=== PATIENT | female | born 1985 | race Two or more races ===

== ENCOUNTER → 2016-12-15 | Emergency (ER) | payer MEDICAID ==
[~2016-12-15] VITALS: Ht 157.5 cm; Wt 72.6 kg
[~2016-12-15] MED LIST: ADVAIR 250-501 EACH INH; ALBUTEROL SULF8.5 GM INH; AZITHROMYCIN250 MG ORAL; CHLORPHENIRAMINE4 M1 PO; IBUPROFEN600 MG ORAL; PEPCID20 MG ORAL; PREDNISONE10 MG ORAL; PREDNISONE20 MG ORAL; PROMETH-CODEIN 65 ML PO; PROMETHAZINE-C118 M1 ORAL; ROBITUSSIN AC5 ML ORAL; TYLENOL325 MG ORAL
--- NOTE | 2016-12-15 12:22 | Emergency Room Report ---
History of Present Illness General Chief Complaint: Flu Like Symptoms Source: Patient Present Illness HPI Mother of family with URI symptoms. Also h/o asthma. Son with URI and fevers started Wednesday. Other children same. Phlegm is clear. No wheezes. No chest pain. Some sore throat. Muscle aches and some headache. Nose congestion. No NVD. Not . No chest pain. Had flu shot. Requests albuterol inhaler. Allergies: Uncoded Allergies: Claritine (Allergy, Unknown, 03/29/14) Patient History Social History: Denies: smoking Social History Narrative with children Last Menstrual Period: 4 days ago Reviewed Nursing Documentation: PMH: Agreed, PSxH: Agreed Nursing Documentation-PMH Past Medical History: No History, Except For Hx Asthma: Yes Review of Systems All Other Systems: negative except mentioned in HPI Physical Exam Vital Signs Date Time Temp Pulse Resp B/P Pulse Ox O2 Delivery O2 Flow Rate FiO2 12/15/16 11:31 101.8 125 20 108/72 99 Room Air Sp02 EP Interpretation: reviewed, normal General Appearance: well appearing, no apparent distress, GCS 15, non-toxic Head: normocephalic, atraumatic Eyes: bilateral eye PERRL, bilateral eye normal inspection ENT: hearing grossly normal, normal voice, TMs + canals normal, moist mucus membranes, pharyngeal erythema Neck: full range of motion, supple, no meningismus Respiratory: chest non-tender, lungs clear, normal breath sounds, no respiratory distress, speaking full sentences Cardiovascular #1: regular rate, rhythm Cardiovascular #2: 2+ radial (R) Gastrointestinal: normal bowel sounds, non tender, soft Musculoskeletal: normal inspection, digits/nails normal, gait/station normal, normal range of motion Neurologic: alert, normal gait, grossly normal Psychiatric: mood/affect normal Skin: no rash Medical Decision Making Diagnostic Impression: Primary Impression: URI, acute ER Course Patient with URI as with rest of family. No evidence of bacterial source. She received a flu vaccination and this makes that diagnosis is likely. Her lungs are clear and therefore bronchospasms not significant although she is requesting an inhaler. She is tolerating by mouth fluids. She'll be treated for her fever here. Patient stable for outpatient observation and treatment. Last Vital Signs Date Time Temp Pulse Resp B/P Pulse Ox O2 Delivery O2 Flow Rate FiO2 12/15/16 13:40 100.0 104 20 114/74 100 Room Air 98 Status: improved Disposition: HOME, SELF-CARE Condition: Improved Scripts Acetaminophen (Tylenol) 325 Mg Tablet 650 MG ORAL Q6H Y for Prn Pain/Headache/Temp > 101, #30 TAB 0 Refills Prov: Karson Prajapati M.D. 12/15/16 Chlorpheniramine Maleate (Chlorpheniramine Maleate) 4 Mg Tablet 4 MG PO Q6HR, #14 TAB Prov: Karson Prajapati M.D. 12/15/16 Albuterol Sulfate* (ALBUTEROL SULFATE MDI*) 8.5 Gm Hfa.aer.ad 2 PUFF INH Q6H, #1 INH 0 Refills Prov: Karson Prajapati M.D. 12/15/16 Famotidine (PEPCID) 20 Mg Tablet 20 MG ORAL DAILY, #12 TAB 0 Refills Prov: Karson Prajapati M.D. 12/15/16 Karson Prajapati M.D. Dec 15, 2016 12:22
[2016-12-15 12:23] VITALS: BP 108/72
[2016-12-15 13:20] VITALS: BP 114/74
[2016-12-15 13:40] VITALS: BP 114/74
== END | disposition home or self-care (01) ==
LOC: EMR 12:30
DX: J06.9 Acute upper respiratory infection, unspecified (principal); J45.909 Unspecified asthma, uncomplicated; Z88.8 Allergy status to other drugs, medicaments and biological substances
CPT/HCPCS: 99284

== ENCOUNTER 2016-12-20 07:55 | Emergency (ER) | payer MEDICAID ==
[~2016-12-20] VITALS: Ht 157.5 cm; Wt 73.5 kg
[~2016-12-20 07:55] MED LIST changes: -AZITHROMYCIN250 MG ORAL
[2016-12-20] MEDS ORDERED: Ketorolac 30mg Inj IV ONE (08:15)
[2016-12-20] MEDS ORDERED: Solu-MEDROL 125mg Inj IVP ONE (08:15)
[2016-12-20] MEDS ORDERED: Albuterol ud Inhalation HHN ONE (08:15)
[2016-12-20] MEDS ORDERED: Ipratropium 0.02% Inh Soln 2.5ml UD HHN ONE (08:15)
[2016-12-20 08:42] LABS: APPEARANCE,URINE CLEAR; KETONES,URINE 1+ (NEGATIVE); LEUKOCYTE ESTERASE ,URINE 1+ (NEGATIVE); NITRITE,URINE NEGATIVE (NEGATIVE); PH,URINE 6 (4.5-8.0); PROTEIN,URINE 2+ (NEGATIVE); UROBILINOGEN,URINE 1 MG/DL (0.0-1.0)
[2016-12-20 08:50] LABS: BASOPHILS % (AUTO) 0.6 % (0.0-2.0); EOSINOPHILS % (AUTO) 0.1 % (0.0-3.0); LYMPHOCYTES % (AUTO) 36.9 % (20.0-45.0); MEAN CORPUSCULAR HEMOGLOBIN 22.6 PG (27.0-31.0); MEAN CORPUSCULAR HGB CONC 31.3 G/DL (32.0-36.0); MEAN CORPUSCULAR VOLUME 72 FL (80-99); MEAN PLATELET VOLUME 6.5 FL (6.5-10.1); MONOCYTES % (AUTO) 8.4 % (1.0-10.0); PLATELET COUNT 333 K/UL (150-450); RED BLOOD COUNT 3.97 M/UL (4.20-5.40); RED CELL DISTRIBUTION WIDTH 16.4 % (11.6-14.8); WHITE BLOOD COUNT 3.6 K/UL (4.8-10.8)
[2016-12-20 08:54] LABS: BACTERIA,URINE FEW /HPF; ICTOTEST NEGATIVE; RBC,URINE 0-2 /HPF (0 - 2); SQUAMOUS EPITHELIAL CELL,UR MODERATE /LPF (NONE/OCC)
[2016-12-20 09:01] LABS: ALANINE AMINOTRANSFERASE 29 U/L (3-33); ALBUMIN/GLOBULIN RATIO 1.3 (1.0-2.7); ANION GAP 17 (5-15); ASPARTATE AMINO TRANSFERASE 38 U/L (5-40); CALCIUM 8.9 mg/dL (8.6-10.2); CARBON DIOXIDE 25 mEQ/L (20-30); CHLORIDE 95 mEQ/L (98-107); CREATININE 0.8 mg/dL (0.5-0.9); GLOMERULAR FILTRATION RATE > 60 mL/min (>60); HEMOLYSIS 0; POTASSIUM 3.5 mEQ/L (3.4-4.9); SODIUM 137 mEQ/L (135-145); TOTAL PROTEIN 7.3 g/dL (6.6-8.7)
--- NOTE | 2016-12-20 09:07 | Emergency Room Report ---
History of Present Illness General Chief Complaint: Upper Respiratory Illness Source: Patient Present Illness HPI The patient was seen here with a viral upper respiratory infection on her . She was treated symptomatically. In addition to that she has a history of asthma and was given albuterol. The patient states that the cough has persisted now with green phlegm. She also complains of headache and also chest pain when she is coughing. She has shortness of breath when she is walking. She's also continued to have fevers. The sore throat somewhat better. She denies any nausea vomiting or diarrhea. She is not at this time. The pain in her head is 9/10 and pounding heart rate the pain in her chest is slightly less than that. She's had asthma in the past. This does not feel like an asthma attack for her. She has been using albuterol. Allergies: Coded Allergies: LORATADINE (Verified Allergy, Unknown, 12/20/16) Uncoded Allergies: Claritine (Allergy, Unknown, 03/29/14) Patient History Past Medical History: see triage record Social History: Denies: smoking Social History Narrative with children Last Menstrual Period: 2 weeks ago Reviewed Nursing Documentation: PMH: Agreed, PSxH: Agreed Nursing Documentation-PMH Past Medical History: No History, Except For Hx Asthma: Yes Review of Systems All Other Systems: negative except mentioned in HPI Physical Exam Vital Signs Date Time Temp Pulse Resp B/P Pulse Ox O2 Delivery O2 Flow Rate FiO2 12/20/16 08:04 99.3 107 20 102/69 96 Room Air Sp02 EP Interpretation: reviewed, abnormal - slioghtly low as interpreted by me General Appearance: well appearing, no apparent distress, GCS 15, non-toxic Head: normocephalic Eyes: bilateral eye PERRL, bilateral eye normal inspection ENT: moist mucus membranes Neck: supple Respiratory: chest non-tender, crackles, rales, wheezing, expiration Cardiovascular #1: regular rate, rhythm Cardiovascular #2: 2+ radial (R) Gastrointestinal: normal inspection, normal bowel sounds, non tender, no mass, non-distended Musculoskeletal: back normal, gait/station normal, normal range of motion Neurologic: alert, oriented x3, grossly normal Psychiatric: mood/affect normal Skin: normal inspection, warm/dry Medical Decision Making Diagnostic Impression: Primary Impression: Pneumonia Qualified Codes: J18.9 - Pneumonia, unspecified organism Additional Impression: Asthma ER Course The patient presents with continued cough chest pain and fever. She is a history of asthma. Differential includes pneumonia, bronchitis, exacerbation of asthma, pleurisy amongst others. Evaluation will be undertaken with labs and chest x-ray. She'll be given IV hydration, some Medrol and a breathing treatment. Chest x-ray reveals left-sided infiltrate. She'll be given a dose of IV azithromycin. Also treated for pain. Improved with treatment with decreased pain and cough. O2 sat good. No respiratory distress. Patient stable for outpatient observation and treatment. Advised of dx and told to return if worsened. Chest X-Ray Diagnostic Results EP Interpretation: Yes Findings: no effusion, no pneumothorax, other - L infiltrate Number of Views: 1 Last Vital Signs Date Time Temp Pulse Resp B/P Pulse Ox O2 Delivery O2 Flow Rate FiO2 12/20/16 10:41 99 16 Room Air 12/20/16 10:40 97.6 101/72 100 Status: improved Disposition: HOME, SELF-CARE Condition: Improved Scripts Codeine/Promethazine Hcl* (PROMETHAZINE-CODEINE SYRUP*) 118 Ml Syrup 5 ML ORAL Q6H Y for For Cough, #60 ML 0 Refills Prov: Karson Prajapati M.D. 12/20/16 Prednisone* (PREDNISONE*) 10 Mg Tablet 10 MG ORAL DAILY, #22 TAB 0 Refills 4 po QD X 2, 3 po QD X 2, 2 po QD X 2, 1 po QD X 4 Prov: Karson Prajapati M.D. 12/20/16 Azithromycin* (ZITHROMAX*) 250 Mg Tablet 500 MG ORAL ONCE for 6 Days, #6 TAB 0 Refills Prov: Karson Prajapati M.D. 12/20/16 Referrals: NOT CHOSEN ANGELA/,REFERRING (PCP) Karson Prajapati M.D. Dec 20, 2016 09:07
[2016-12-20] MEDS ORDERED: Azithromycin Inj IV ONE (09:14)
[2016-12-20] MEDS ORDERED: Azithromycin 500 MG in D5W 275 ML IVPB ONE (09:15)
[2016-12-20 10:22] VITALS: BP 97/60
[2016-12-20] MEDS ORDERED: PROMETHAZINE-C118 M1 ORAL (10:30)
[2016-12-20] MEDS ORDERED: AZITHROMYCIN250 MG ORAL (10:30)
[2016-12-20] MEDS ORDERED: PREDNISONE10 MG ORAL (10:30)
[2016-12-20 10:40] VITALS: BP 101/72
--- NOTE | 2016-12-21 08:39 | Diagnostic Imaging Report ---
Indication: Dyspnea Comparison: None 2 views of the chest obtained. There is a left basilar infiltrate suspicious for pneumonia. Lung volumes are low. Heart size is accentuated. Bones are unremarkable. Impression: Left basilar pneumonia
== END 2016-12-20 10:42 | disposition home or self-care (01) ==
LOC: EMR 08:09
DX: J18.9 Pneumonia, unspecified organism (principal); J45.909 Unspecified asthma, uncomplicated
CPT/HCPCS: 36415; 71020; 80053; 81003; 81025; 85025; 96360; 96361; 96374; 96375; 99284; J0456; J1885; J2930

== ENCOUNTER 2017-08-24 18:39 | Emergency (ER) | payer MEDICAID ==
[~2017-08-24] VITALS: Ht 157.5 cm; Wt 72.6 kg
[~2017-08-24 18:39] MED LIST changes: +AZITHROMYCIN250 MG ORAL
[2017-08-24] MEDS ORDERED: DULERA 200 MCG/13 GM IH (18:48)
[2017-08-24] MEDS ORDERED: ADVAIR 500-501 EACH INH (18:48)
[2017-08-24] MEDS ORDERED: Promethazine/Codeine 5ml UD ORAL ONE (19:00)
[2017-08-24] MEDS ORDERED: Ipratropium 0.02% Inh Soln 2.5ml UD HHN ONE (19:00)
[2017-08-24] MEDS ORDERED: Albuterol ud Inhalation HHN ONE (19:00)
--- NOTE | 2017-08-24 19:10 | Emergency Room Report ---
History of Present Illness General Chief Complaint: Upper Respiratory Illness Source: Patient Present Illness HPI 31-year-old female presents ED for evaluation. States the last 3 days she's been having cough, wheezing, headache fever. States she was febrile yesterday. Afebrile today in triage. States she also has a headache, 8/10, throbbing. She has cough with productive green sputum. Denies sick contacts or recent travel. Denies smoking. History of asthma. No other aggravating relieving factors. Denies any other associated symptoms Allergies: Coded Allergies: LORATADINE (Verified Allergy, Unknown, 12/20/16) Patient History Past Medical History: asthma Past Surgical History: none Pertinent Family History: none Social History: Denies: smoking, alcohol use, drug use Last Menstrual Period: Current Now: No Immunizations: UTD Reviewed Nursing Documentation: PMH: Agreed, PSxH: Agreed Nursing Documentation-PMH Hx Asthma: Yes Review of Systems All Other Systems: negative except mentioned in HPI Physical Exam Vital Signs Date Time Temp Pulse Resp B/P (MAP) Pulse Ox O2 Delivery O2 Flow Rate FiO2 08/24/17 18:43 98.4 82 20 123/73 100 Room Air Sp02 EP Interpretation: reviewed, normal General Appearance: no apparent distress, alert, GCS 15, non-toxic Head: normocephalic, atraumatic Eyes: bilateral eye normal inspection, bilateral eye PERRL ENT: hearing grossly normal, normal pharynx, no angioedema, normal voice, other - bilateral TM cloudy Neck: full range of motion, supple/symm/no masses Respiratory: crackles, wheezing Cardiovascular #1: regular rate, rhythm, no edema Gastrointestinal: normal bowel sounds, non tender, soft, non-distended, no guarding, no rebound Rectal: deferred Genitourinary: no CVA tenderness Musculoskeletal: normal inspection Neurologic: alert, oriented x3, responsive, motor strength/tone normal, sensory intact, speech normal Psychiatric: normal inspection Skin: normal inspection Lymphatic: normal inspection Medical Decision Making Diagnostic Impression: Primary Impression: Atypical pneumonia ER Course Hospital Course 31-year-old female presents to ED complaining of cough, wheezing Differential diagnoses include: URI, bronchitis, asthma/COPD, pneumonia Clinical course Patient placed on stretcher. After initial history and physical I ordered prednisone, promethazine/codeine and nebulizer treatment. Upon reassessment patient states cough and symptoms have improved. presentation consistent with atypical pneumonia. I will prescribe antibiotics Diagnosis - atypical pneumonia Stable and discharged home with prescriptions for Rx promethazine/codeine, prednisone, amoxicilin, albuterol. Instructed to followup with PMD. Return to ED if symptoms recur or worsen Last Vital Signs Date Time Temp Pulse Resp B/P (MAP) Pulse Ox O2 Delivery O2 Flow Rate FiO2 08/24/17 18:43 98.4 82 20 123/73 100 Room Air Status: improved Disposition: HOME, SELF-CARE Condition: Stable Scripts Albuterol Sulfate* (ALBUTEROL SULFATE MDI*) 8.5 Gm Hfa.aer.ad 2 PUFF INH Q6H, #1 EA 0 Refills Prov: TASHA MCKINNEY M.D. 08/24/17 Prednisone* (PREDNISONE*) 20 Mg Tablet 40 MG ORAL DAILY, #10 TAB Prov: TASHA MCKINNEY M.D. 08/24/17 Codeine/Promethazine Hcl* (PROMETHAZINE-CODEINE SYRUP*) 118 Ml Syrup 5 ML ORAL Q6H Y for For Cough, #118 ML 0 Refills Prov: TASHA MCKINNEY M.D. 08/24/17 Amoxicillin* (AMOXIL*) 500 Mg Capsule 500 MG ORAL THREE TIMES A DAY, #21 CAP Prov: TASHA MCKINNEY M.D. 08/24/17 TASHA MCKINNEY M.D. Aug 24, 2017 19:10
[2017-08-24 19:15] VITALS: BP 123/73
[2017-08-24] MEDS ORDERED: PROMETHAZINE-C118 M1 ORAL (19:36)
[2017-08-24] MEDS ORDERED: PREDNISONE20 MG ORAL (19:36)
[2017-08-24] MEDS ORDERED: AMOXICILLIN500 MG ORAL (19:36)
[2017-08-24] MEDS ORDERED: ALBUTEROL SULF8.5 GM INH (19:36)
[2017-08-24 19:45] VITALS: BP 123/73
== END 2017-08-24 19:45 | disposition home or self-care (01) ==
LOC: EMR 19:09
DX: J18.9 Pneumonia, unspecified organism (principal); J45.909 Unspecified asthma, uncomplicated
CPT/HCPCS: 94640; 94664; 99284

== ENCOUNTER 2017-09-24 08:15 | Emergency (ER) | payer MEDICAID ==
[~2017-09-24] VITALS: Ht 152.4 cm; Wt 68.0 kg
[~2017-09-24 08:15] MED LIST changes: +ADVAIR 500-501 EACH INH; +AMOXICILLIN500 MG ORAL; +DULERA 200 MCG/13 GM IH
[2017-09-24 08:28] VITALS: BP 145/90
--- NOTE | 2017-09-24 08:30 | Emergency Room Report ---
History of Present Illness General Chief Complaint: Toothache Source: Patient Present Illness HPI Patient presents with complaints of left lower dental pain reports the pain started yesterday Denies any fevers or chills she feels of the pain is radiating downward to the lower chin She also complained of headache Denies any visual changes denies any neck pain or photophobia Denies any vomiting or diarrhea denies any trauma Allergies: Coded Allergies: LORATADINE (Verified Allergy, Unknown, 12/20/16) Patient History Past Medical History: see triage record Pertinent Family History: none Last Menstrual Period: 09/22/17 Reviewed Nursing Documentation: PMH: Agreed, PSxH: Agreed Nursing Documentation-PMH Past Medical History: No History, Except For Hx Asthma: Yes Review of Systems All Other Systems: negative except mentioned in HPI Physical Exam Vital Signs Date Time Temp Pulse Resp B/P (MAP) Pulse Ox O2 Delivery O2 Flow Rate FiO2 09/24/17 08:18 98.1 88 18 145/90 99 Room Air Sp02 EP Interpretation: reviewed, normal General Appearance: well appearing, no apparent distress Head: normocephalic, atraumatic Eyes: bilateral eye PERRL, bilateral eye EOMI ENT: hearing grossly normal, other - Left lower dental region just posterior to the canine, patient has evidence of dental decay, no obvious gingival erythema or abscess no trismus Neck: full range of motion, supple Respiratory: lungs clear Neurologic: alert, oriented x3 Skin: normal color, no rash Medical Decision Making Diagnostic Impression: Primary Impression: Toothache Additional Impression: Dental decay ER Course Patient's discomfort appears to be from a dental source no obvious abscess or fluctuance Patient does require close dental followup She was provided with pain medication I did not feel that antibiotics are appropriate given the findings she is stable for close followup Last Vital Signs Date Time Temp Pulse Resp B/P (MAP) Pulse Ox O2 Delivery O2 Flow Rate FiO2 09/24/17 08:18 98.1 88 18 145/90 99 Room Air Status: improved Disposition: HOME, SELF-CARE Condition: Stable Additional Instructions: Followup with dental professional next one to 2 days return to the ER with any changes HILARY OSUNA D.O. Sep 24, 2017 08:30
[2017-09-24] MEDS ORDERED: IBUPROFEN600 MG ORAL (08:31)
[2017-09-24 08:35] VITALS: BP 145/90
== END 2017-09-24 08:38 | disposition home or self-care (01) ==
LOC: EMR 08:27
DX: K08.89 Other specified disorders of teeth and supporting structures (principal); K02.9 Dental caries, unspecified; J45.909 Unspecified asthma, uncomplicated
CPT/HCPCS: 99282

== ENCOUNTER 2017-10-10 19:42 | Emergency (ER) | payer MEDICAID ==
[~2017-10-10] VITALS: Ht 157.5 cm; Wt 74.8 kg
[2017-10-10] MEDS ORDERED: TESSALON PERLE100 MG ORAL (20:55)
[2017-10-10] MEDS ORDERED: ZITHROMAX TRI-500 MG ORAL (21:44)
[2017-10-10] MEDS ORDERED: ALBUTEROL SULF8.5 GM INH (21:44)
--- NOTE | 2017-10-10 21:44 | Emergency Room Report ---
History of Present Illness General Chief Complaint: Flu Like Symptoms Source: Patient, Medical Record Present Illness HPI 31-year-old female with pmhx asthma p/w cough for 4 days. Pt states cough is productive, with clear non bloody sputum. +fever . Also complains of chest pain only when she coughs. Denies runny nose or myalgias. No sick contacts or recent travel. Patient does not smoke. Allergies: Coded Allergies: LORATADINE (Verified Allergy, Unknown, 12/20/16) Patient History Past Medical History: see triage record Past Surgical History: none Pertinent Family History: none Last Menstrual Period: 09/29/17 Now: No : 5 Para: 5 Reviewed Nursing Documentation: PMH: Agreed, PSxH: Agreed Nursing Documentation-PMH Hx Asthma: Yes Review of Systems All Other Systems: negative except mentioned in HPI Physical Exam Vital Signs Date Time Temp Pulse Resp B/P (MAP) Pulse Ox O2 Delivery O2 Flow Rate FiO2 10/10/17 19:55 99.3 116 18 129/57 92 Room Air Sp02 EP Interpretation: reviewed, normal General Appearance: normal inspection, well appearing, no apparent distress, alert, GCS 15, non-toxic, other - speaking in complete sentences, nontoxic Head: normocephalic, atraumatic Eyes: bilateral eye normal inspection, bilateral eye PERRL, bilateral eye EOMI ENT: normal ENT inspection, normal pharynx, normal voice, moist mucus membranes Neck: normal inspection, full range of motion, supple Respiratory: lungs clear, normal breath sounds, no respiratory distress, no retraction, no wheezing, speaking full sentences, other - lungs, no wheezing no crackles, chest symmetrical Cardiovascular #1: normal inspection, regular rate, rhythm, normal capillary refill Cardiovascular #2: 2+ radial (R), 2+ radial (L) Gastrointestinal: normal inspection, non tender, soft, non-distended, no guarding Musculoskeletal: normal inspection, back normal, normal range of motion, non- tender Neurologic: normal inspection, alert, oriented x3, responsive, motor strength/ tone normal, sensory intact, normal gait, speech normal Psychiatric: normal inspection, judgement/insight normal, memory normal Skin: normal inspection, normal color, no rash, warm/dry, well hydrated, normal turgor Medical Decision Making Diagnostic Impression: Primary Impression: Upper respiratory infection Additional Impression: Atypical pneumonia ER Course 31-year-old female with cough for 4 days DDX: Viral URI vs. pneumonia Plan: CXR, antibiotics ER course: Patient remains nontoxic, not in resp distress. no wheezing CXR obtained -possible atypical pneumonia Disposition: Patient is to be discharged home with a prescription albuterol inhalder, Z-Radha Strict precautions discussed with patient on when to return to the emergency room including hemoptysis, high fevers, chills, SOB, chest pain which may indicate severe illness. Patient is to follow up with their primary care doctor within 5 days. Patient agrees with plan. Please note that this Emergency Department Report was dictated using [employer] representative technology software, occasionally this can lead to erroneous entry secondary to interpretation by the dictation equipment Chest X-ray CXR: Ordered: Yes 1 view Indication: Cough EP interpretation: Yes Interpretation: + Interstitial infiltrate Impression: Interstitial infiltrates Electronically signed by Greg Grady MD Last Vital Signs Date Time Temp Pulse Resp B/P (MAP) Pulse Ox O2 Delivery O2 Flow Rate FiO2 10/10/17 19:55 99.3 116 18 129/57 92 Room Air Disposition: HOME, SELF-CARE Condition: Improved Scripts Albuterol Sulfate* (ALBUTEROL SULFATE MDI*) 8.5 Gm Hfa.aer.ad 2 PUFF INH Q4H Y for cough/wheezing, #1 EA 0 Refills Prov: Greg Grady M.D. 10/10/17 Azithromycin (ZITHROMAX TRI-RADHA) 500 Mg Tablet 500 MG ORAL DAILY, #1 PACK 0 Refills Prov: Greg Grady M.D. 10/10/17 Benzonatate* (TESSALON PERLE*) 100 Mg Capsule 100 MG ORAL THREE TIMES A DAY for 7 Days, #21 PERLE 0 Refills Prov: Greg Grady M.D. 10/10/17 Patient Instructions: Upper Respiratory Infection, Adult, [id number] Greg Grady M.D. Oct 10, 2017 21:44
[2017-10-10 21:53] VITALS: BP 103/66
--- NOTE | 2017-10-11 12:52 | Diagnostic Imaging Report ---
Indication: Cough Comparison: 12/20/2016 A single view chest radiograph was obtained. Findings: Cardiomediastinal appearance is within normal limits for age. Pulmonary vascularity is appropriate. The diaphragmatic contour is smooth and costophrenic angles are sharp. No pleural effusions are identified. The bones are unremarkable. Impression: No acute findings
== END 2017-10-10 21:48 | disposition home or self-care (01) ==
LOC: EMR 20:05
DX: J06.9 Acute upper respiratory infection, unspecified (principal); J18.9 Pneumonia, unspecified organism; J45.909 Unspecified asthma, uncomplicated
CPT/HCPCS: 71010; 99284

== ENCOUNTER 2018-01-02 09:41 | Emergency (ER) | payer MEDICAID ==
[~2018-01-02] VITALS: Ht 154.9 cm; Wt 70.3 kg
[~2018-01-02 09:41] MED LIST changes: +TESSALON PERLE100 MG ORAL; +ZITHROMAX TRI-500 MG ORAL
[2018-01-02 10:04] VITALS: BP 115/75
[2018-01-02] MEDS ORDERED: Ipratropium 0.02% Inh Soln 2.5ml UD HHN ONE (10:15)
[2018-01-02] MEDS ORDERED: Solu-MEDROL 125mg Inj IVP ONE (10:15)
[2018-01-02] MEDS ORDERED: Albuterol ud Inhalation HHN ONE (10:15)
[2018-01-02 10:51] LABS: BASOPHILS % (AUTO) 1.5 % (0.0-2.0); EOSINOPHILS % (AUTO) 11.7 % (0.0-3.0); HEMATOCRIT 30.1 % (37.0-47.0); HEMOGLOBIN 8.9 G/DL (12.0-16.0); LYMPHOCYTES % (AUTO) 21.6 % (20.0-45.0); MEAN CORPUSCULAR VOLUME 69 FL (80-99); MONOCYTES % (AUTO) 6.1 % (1.0-10.0); NEUTROPHILS % (AUTO) 59.2 % (45.0-75.0); PLATELET COUNT 476 K/UL (150-450); RED CELL DISTRIBUTION WIDTH 17.4 % (11.6-14.8); WHITE BLOOD COUNT 8.3 K/UL (4.8-10.8)
[2018-01-02 10:58] LABS: ANION GAP 6 mmol/L (5-15); BLOOD UREA NITROGEN 10 mg/dL (7-18); CALCIUM 9.2 MG/DL (8.5-10.1); CARBON DIOXIDE 28 MMOL/L (21-32); CHLORIDE 102 MMOL/L (98-107); CREATININE 0.6 MG/DL (0.55-1.30); POTASSIUM 3.9 MMOL/L (3.5-5.1); SODIUM 136 MMOL/L (136-145)
[2018-01-02 11:09] LABS: ALANINE AMINOTRANSFERASE 36 U/L (12-78); ALKALINE PHOSPHATASE 83 U/L (46-116); ASPARTATE AMINO TRANSFERASE 21 U/L (15-37); BILIRUBIN,TOTAL 1.1 MG/DL (0.2-1.0)
[2018-01-02 11:10] LABS: APPEARANCE,URINE SLIGHTLY CLOUDY; BILIRUBIN, URINE NEGATIVE (NEGATIVE); COLOR,URINE PALE YELLOW; GLUCOSE, URINE (UA) NEGATIVE (NEGATIVE); KETONES,URINE NEGATIVE (NEGATIVE); LEUKOCYTE ESTERASE ,URINE 1+ (NEGATIVE); NITRITE,URINE NEGATIVE (NEGATIVE); PH,URINE 7 (4.5-8.0); PROTEIN,URINE NEGATIVE (NEGATIVE); UROBILINOGEN,URINE NORMAL MG/DL (0.0-1.0)
[2018-01-02 11:11] LABS: BILIRUBIN,DIRECT 0.2 MG/DL (0.0-0.3)
--- NOTE | 2018-01-02 11:28 | Diagnostic Imaging Report ---
Indication: Chest pain Technique: XRAY Chest 1v Comparison: 10/10/2017 Findings: The cardiomediastinal silhouette is within normal limits. There is no focal consolidation, pneumothorax or pleural effusion. Osseous structures demonstrate no acute abnormality. Impression: No acute cardiopulmonary disease.
[2018-01-02 11:42] VITALS: BP 118/79
--- NOTE | 2018-01-02 12:03 | Emergency Room Report ---
History of Present Illness General Chief Complaint: Asthma Source: Patient Present Illness HPI Patient presents with several days of cough and wheezing. No fevers. No color to phlegm. Chest pain is more pressure (rated 5/10 to RN, denied to me). No NVD. Has h/o asthma. Using inhaler, ran out, and it wasn't working anyway. She states this is her worst attack. No flu shot. Not sure is she took steroids in past (old recon has). H/O heavy menses. No orthostatic sy or headaches. states pallor in past. No melena. Not . No joint pain, rashes, change in bowels. Allergies: Coded Allergies: LORATADINE (Verified Allergy, Unknown, 12/20/16) Patient History Past Medical History: see triage record Social History: Denies: smoking Social History Narrative Last Menstrual Period: december Reviewed Nursing Documentation: PMH: Agreed, PSxH: Agreed Nursing Documentation-PMH Hx Asthma: Yes Review of Systems All Other Systems: negative except mentioned in HPI Physical Exam Vital Signs Date Time Temp Pulse Resp B/P (MAP) Pulse Ox O2 Delivery O2 Flow Rate FiO2 01/02/18 09:54 97.6 97 18 157/76 93 Room Air 97.5 01/02/18 10:08 21 Sp02 EP Interpretation: reviewed, abnormal - interpreted as low by me General Appearance: well appearing, no apparent distress, GCS 15 Head: normocephalic Eyes: bilateral eye PERRL, bilateral eye conjunctivae pale ENT: normal pharynx, moist mucus membranes Neck: supple Respiratory: wheezing, expiration, other - slight tachypnea Cardiovascular #1: regular rate, rhythm, no edema Cardiovascular #2: 2+ radial (R) Gastrointestinal: normal inspection, normal bowel sounds, non tender, no mass, non-distended Musculoskeletal: back normal, gait/station normal, normal range of motion, no calf tenderness Neurologic: alert, oriented x3, grossly normal Skin: warm/dry, pallor Medical Decision Making Diagnostic Impression: Primary Impression: Asthma Qualified Codes: J45.41 - Moderate persistent asthma with (acute) exacerbation Additional Impression: Anemia Qualified Codes: D50.0 - Iron deficiency anemia secondary to blood loss ( chronic) ER Course Patient presents with worst asthma attack she has ever had. Ddx: pneumonia, bronchitis, influenza, asthma, PE. History is inconsistent with PE. Evaluation with CXR, labs. Treatment with solumedrol and breathing treatments. Close observation as never this severe in past according to her. She is also quite pale. CXR no infiltrates. Labs with anemia and eosinophilia. Patient dramatically improved after treatment. Exercised in ED and no wheezing. O2 sat now 100%. Discussed findings and significance of steroid responsive asthma and anemia. Patient stable for outpatient observation and treatment Laboratory Tests Test 01/02/18 10:20 01/02/18 10:40 White Blood Count 8.3 K/UL (4.8-10.8) Red Blood Count 4.40 M/UL (4.20-5.40) Hemoglobin 8.9 G/DL (12.0-16.0) L Hematocrit 30.1 % (37.0-47.0) L Mean Corpuscular Volume 69 FL (80-99) L Mean Corpuscular Hemoglobin 20.2 PG (27.0-31.0) L Mean Corpuscular Hemoglobin Concent 29.5 G/DL (32.0-36.0) L Red Cell Distribution Width 17.4 % (11.6-14.8) H Platelet Count 476 K/UL (150-450) H Mean Platelet Volume 6.7 FL (6.5-10.1) Neutrophils (%) (Auto) 59.2 % (45.0-75.0) Lymphocytes (%) (Auto) 21.6 % (20.0-45.0) Monocytes (%) (Auto) 6.1 % (1.0-10.0) Eosinophils (%) (Auto) 11.7 % (0.0-3.0) H Basophils (%) (Auto) 1.5 % (0.0-2.0) Sodium Level 136 MMOL/L (136-145) Potassium Level 3.9 MMOL/L (3.5-5.1) Chloride Level 102 MMOL/L (98-107) Carbon Dioxide Level 28 MMOL/L (21-32) Anion Gap 6 mmol/L (5-15) Blood Urea Nitrogen 10 mg/dL (7-18) Creatinine 0.6 MG/DL (0.55-1.30) Estimate Glomerular Filtration Rate > 60 mL/min (>60) Glucose Level 87 MG/DL (74-106) Calcium Level 9.2 MG/DL (8.5-10.1) Magnesium Level 1.9 MG/DL (1.8-2.4) Total Bilirubin 1.1 MG/DL (0.2-1.0) H Direct Bilirubin 0.2 MG/DL (0.0-0.3) Aspartate Amino Transferase (AST) 21 U/L (15-37) Alanine Aminotransferase (ALT) 36 U/L (12-78) Alkaline Phosphatase 83 U/L (46-116) Total Protein 7.9 G/DL (6.4-8.2) Albumin 4.0 G/DL (3.4-5.0) Globulin 3.9 g/dL Albumin/Globulin Ratio 1.0 (1.0-2.7) Urine Color Pale yellow Urine Appearance Slightly cloudy Urine pH 7 (4.5-8.0) Urine Specific [place] 1.005 (1.005-1.035) Urine Protein Negative (NEGATIVE) Urine Glucose (UA) Negative (NEGATIVE) Urine Ketones Negative (NEGATIVE) Urine Occult Blood Negative (NEGATIVE) Urine Nitrite Negative (NEGATIVE) Urine Bilirubin Negative (NEGATIVE) Urine Urobilinogen Normal MG/DL (0.0-1.0) Urine Leukocyte Esterase 1+ (NEGATIVE) H Urine RBC 0-2 /HPF (0 - 2) Urine WBC 2-4 /HPF (0 - 2) Urine Squamous Epithelial Cells Many /LPF (NONE/OCC) H Urine Bacteria Few /HPF (NONE) Urine HCG, Qualitative Negative Chest X-Ray Diagnostic Results Chest X-Ray Diagnostic Results : Chest X-Ray Ordered: Yes # of Views/Limited/Complete: 1 View Indication: Shortness of Breath Interpretation: no consolidation, no effusion, no pneumothorax Impression: No acute disease Electronically Signed by: Electronically signed by Karson Prajapati MD Last Vital Signs Date Time Temp Pulse Resp B/P (MAP) Pulse Ox O2 Delivery O2 Flow Rate FiO2 01/02/18 12:11 97.5 79 22 118/79 100 Room Air 97.5 01/02/18 10:17 21 Status: improved Disposition: HOME, SELF-CARE Condition: Improved Scripts Multivitamin With Minerals (MULTIVITAMINS WITH MINERALS*) 1 Each Tablet 1 TAB ORAL DAILY, #30 TAB Prov: Karson Prajapati M.D. 01/02/18 Albuterol Sulfate* (ALBUTEROL SULFATE MDI*) 8.5 Gm Hfa.aer.ad 2 PUFF INH Q6H, #1 EA 1 Refill Prov: Karson Prajapati M.D. 01/02/18 Beclomethasone Dipropionate 40MCG Oral Inh (QVAR 40*) 7.3 Gm Aer.w.adap 2 PUFFS INH TWICE A DAY, #1 GM 0 Refills Prov: Karson Prajapati M.D. 01/02/18 Prednisone* (PREDNISONE*) 20 Mg Tablet 40 MG ORAL DAILY, #10 TAB Prov: Karson Prajapati M.D. 01/02/18 Referrals: NOT CHOSEN ANGELA/,REFERRING (PCP) Karson Prajapati M.D. Jan 02, 2018 12:03
[2018-01-02] MEDS ORDERED: PREDNISONE20 MG ORAL (12:06)
[2018-01-02] MEDS ORDERED: QVAR7.3 GM INH (12:06)
[2018-01-02] MEDS ORDERED: ALBUTEROL SULF8.5 GM INH (12:06)
[2018-01-02] MEDS ORDERED: MULTIVITAMINS1 EAC8 ORAL (12:06)
[2018-01-02 12:11] VITALS: BP 118/79
== END 2018-01-02 12:13 | disposition home or self-care (01) ==
LOC: EMR 10:05
DX: J45.41 Moderate persistent asthma with (acute) exacerbation (principal); D50.0 Iron deficiency anemia secondary to blood loss (chronic); Z88.8 Allergy status to other drugs, medicaments and biological substances; R07.9 Chest pain, unspecified
CPT/HCPCS: 36415; 71045; 80053; 81003; 81025; 82248; 83735; 85025; 94640; 94664; 96374; 96375; 99284; J2930

== ENCOUNTER 2018-03-03 22:03 | Emergency (ER) | payer MEDICAID ==
[~2018-03-03] VITALS: Ht 157.5 cm; Wt 77.1 kg
[~2018-03-03 22:03] MED LIST changes: +MULTIVITAMINS1 EAC8 ORAL; +QVAR7.3 GM INH
--- NOTE | 2018-03-03 22:28 | Emergency Room Report ---
History of Present Illness General Chief Complaint: Asthma Source: Patient Present Illness HPI Patient presents with complaints of asthma exacerbation She is here with her who complains of the same Patient did get a new mattress And thinks that this might be causing some of the pathology Denies any vomiting or diarrhea denies any fevers denies any chest pain Patient was using her inhaler without much improvement Allergies: Coded Allergies: LORATADINE (Verified Allergy, Unknown, 12/20/16) Patient History Past Medical History: see triage record Pertinent Family History: none Last Menstrual Period: 02/19/18 Now: No - hysterectomy 2012 Reviewed Nursing Documentation: PMH: Agreed; PSxH: Agreed Nursing Documentation-PMH Past Medical History: No History, Except For Hx Asthma: Yes Review of Systems All Other Systems: negative except mentioned in HPI Physical Exam Vital Signs Date Time Temp Pulse Resp B/P (MAP) Pulse Ox O2 Delivery O2 Flow Rate FiO2 03/03/18 22:09 98.3 66 16 120/63 95 Room Air 98.2 Sp02 EP Interpretation: reviewed, normal General Appearance: well appearing, no apparent distress Head: normocephalic, atraumatic Eyes: bilateral eye PERRL, bilateral eye EOMI ENT: hearing grossly normal, normal pharynx, TMs + canals normal, uvula midline Neck: full range of motion, supple, no meningismus, no bony tend Respiratory: no respiratory distress, no retraction, no accessory muscle use, wheezing - Bilaterally Cardiovascular #1: normal peripheral pulses, regular rate, rhythm, no edema, no gallop, no JVD, no murmur Gastrointestinal: normal bowel sounds, non tender, soft, no mass, no organomegaly, non-distended, no guarding, no hernia, no pulsatile mass, no rebound Musculoskeletal: normal inspection Neurologic: oriented x3, responsive, master dyer III-XII nml as tested, motor strength/ tone normal, sensory intact Psychiatric: mood/affect normal Skin: normal color, no rash, warm/dry, palpation normal Lymphatic: normal inspection, no adenopathy Medical Decision Making Diagnostic Impression: Primary Impression: Asthma attack ER Course Patient is a fairly complex patient with multiple differential to consideration including but not limited to cardiac cardiopulmonary and vascular emergencies Patient's clinical exam however is indicative of asthma exacerbation Patient is significantly better after initial intervention in the ER and at this time is stable for close outpatient follow-up Last Vital Signs Date Time Temp Pulse Resp B/P (MAP) Pulse Ox O2 Delivery O2 Flow Rate FiO2 03/03/18 22:09 98.3 66 16 120/63 95 Room Air 98.2 Status: improved Disposition: HOME, SELF-CARE Condition: Improved Scripts Prednisone (Prednisone) 20 Mg Tablet 20 MG PO BID, #10 TAB Prov: Sherie Garcia DO 03/03/18 Albuterol Sulfate* (ALBUTEROL SULFATE MDI*) 8.5 Gm Hfa.aer.ad 2 PUFF INH Q6H, #1 EA 0 Refills Prov: Sherie Garcia DO 03/03/18 Additional Instructions: Patient is provided with the discharge instructions notified to follow up with primary doctor in the next 2-3 days otherwise return to the er with any worsening symptoms. Please note that this report is being documented using [employer] technology. This can lead to erroneous entry secondary to incorrect interpretation by the dictating instrument. Sherie Garcia DO March 03, 2018 22:28
[2018-03-03] MEDS ORDERED: Albuterol ud Inhalation HHN ONE (22:30)
[2018-03-03] MEDS ORDERED: PREDNISONE20 M1 PO (23:07)
[2018-03-03] MEDS ORDERED: ALBUTEROL SULF8.5 GM INH (23:07)
[2018-03-03 23:24] VITALS: BP 120/63
== END 2018-03-03 23:25 | disposition home or self-care (01) ==
LOC: EMR 22:29
DX: J45.901 Unspecified asthma with (acute) exacerbation (principal)
CPT/HCPCS: 94640; 94664; 99284; J7512

== ENCOUNTER 2018-03-17 19:41 | Emergency (ER) | payer MEDICAID ==
[~2018-03-17] VITALS: Ht 157.5 cm; Wt 77.1 kg
[~2018-03-17 19:41] MED LIST changes: +PREDNISONE20 M1 PO
[2018-03-17] MEDS ORDERED: ADVAIR 100-501 EACH INH (19:47)
[2018-03-17] MEDS: Ipratropium 0.02% Inh Soln 2.5ml UD HHN SCH ×3 (20:08→20:43)
[2018-03-17] MEDS: Albuterol ud Inhalation HHN SCH ×3 (20:10→20:43)
[2018-03-17 21:17] VITALS: BP 121/70
[2018-03-17] MEDS ORDERED: ALBUTEROL2.5 MG/3 M HHN (21:22)
[2018-03-17] MEDS ORDERED: ALBUTEROL SULF8.5 GM INH (21:22)
[2018-03-17] MEDS ORDERED: PREDNISONE20 MG ORAL (21:22)
[2018-03-17] MEDS ORDERED: PROMETHAZINE-C118 M1 ORAL (21:22)
[2018-03-17 21:27] VITALS: BP 121/70
--- NOTE | 2018-03-17 21:31 | Emergency Room Report ---
History of Present Illness General Chief Complaint: Asthma Source: Patient Present Illness HPI 32-year-old female presents ED complaining of cough and wheezing 2 days. History of asthma. Cough is productive with yellowish phlegm. Afebrile. Denies chest pain. Denies sick contacts or recent travel. No other aggravating relieving factors. Denies any other associated symptoms Allergies: Coded Allergies: LORATADINE (Verified Allergy, Unknown, 03/17/18) Patient History Past Medical History: asthma Past Surgical History: none Pertinent Family History: none Social History: Denies: smoking, alcohol use, drug use Last Menstrual Period: unk Now: No Immunizations: UTD Reviewed Nursing Documentation: PMH: Agreed; PSxH: Agreed Nursing Documentation-PMH Past Medical History: No History, Except For Hx Asthma: Yes Review of Systems All Other Systems: negative except mentioned in HPI Physical Exam Vital Signs Date Time Temp Pulse Resp B/P (MAP) Pulse Ox O2 Delivery O2 Flow Rate FiO2 03/17/18 19:45 99.0 112 24 141/102 100 Room Air 99.0 Sp02 EP Interpretation: reviewed, normal General Appearance: no apparent distress, alert, GCS 15, non-toxic Head: normocephalic, atraumatic Eyes: bilateral eye normal inspection, bilateral eye PERRL ENT: hearing grossly normal, normal pharynx, no angioedema, normal voice Neck: full range of motion, supple/symm/no masses Respiratory: chest non-tender, lungs clear, speaking full sentences, wheezing Cardiovascular #1: regular rate, rhythm, no edema Cardiovascular #2: 2+ carotid (R), 2+ carotid (L), 2+ radial (R), 2+ radial (L) , 2+ dorsalis pedis (R), 2+ dorsalis pedis (L) Gastrointestinal: normal bowel sounds, non tender, soft, non-distended, no guarding, no rebound Rectal: deferred Genitourinary: normal inspection, no CVA tenderness Musculoskeletal: back normal, gait/station normal, normal range of motion, non- tender Neurologic: alert, oriented x3, responsive, motor strength/tone normal, sensory intact, speech normal Psychiatric: judgement/insight normal, memory normal, mood/affect normal, no suicidal/homicidal ideation Reflexes: 3+ bicep (R), 3+ bicep (L), 3+ tricep (R), 3+ tricep (L), 3+ knee (R) , 3+ knee (L) Skin: normal color, no rash, warm/dry, well hydrated Lymphatic: no adenopathy Medical Decision Making Diagnostic Impression: Primary Impression: Asthma attack Qualified Codes: J45.41 - Moderate persistent asthma with (acute) exacerbation ER Course Hospital Course 32-year-old female presents to ED complaining of cough, wheezing Differential diagnoses include: URI, bronchitis, asthma/COPD, pneumonia Clinical course Patient placed on stretcher. After initial history, physical exam reveals a female in no acute distress. Bilateral TM unremarkable. No pharyngeal erythema. No tonsillar exudates. No lymphadenopathy. Mild wheezing noted on exam, no signs of respiratory distress or retractions. Patient given Prednisone and albutero/atroventl treatment in ED with symptoms improved. Reassurance given Diagnosis - asthma attack Stable and discharged home with prescriptions for prednisone, albuterol, promethazine/codeine. Instructed to followup with PMD. Return to ED if symptoms recur or worsen Chest X-Ray Diagnostic Results Chest X-Ray Diagnostic Results : Chest X-Ray Ordered: Yes # of Views/Limited/Complete: 1 View Indication: Shortness of Breath EP Interpretation: Yes Interpretation: no consolidation, no effusion, no pneumothorax, no acute cardiopulmonary disease Impression: No acute disease Electronically Signed by: Electronically signed by Jayden Núñez MD Last Vital Signs Date Time Temp Pulse Resp B/P (MAP) Pulse Ox O2 Delivery O2 Flow Rate FiO2 03/17/18 21:17 99.4 120 18 121/70 96 Room Air 99.4 Status: improved Disposition: HOME, SELF-CARE Condition: Stable Scripts Codeine/Promethazine Hcl* (PROMETHAZINE-CODEINE SYRUP*) 118 Ml Syrup 5 ML ORAL Q6H PRN for For Cough, #118 ML 0 Refills Prov: Jayden Núñez MD 03/17/18 Prednisone* (PREDNISONE*) 20 Mg Tablet 40 MG ORAL DAILY, #10 TAB Prov: Jayden Núñez MD 03/17/18 Albuterol Sulfate* (ALBUTEROL SULFATE HHN*) 2.5 Mg/3 Ml Vial.neb 2.5 MG HHN Q4H PRN for Shortness of Breath, #25 VIAL Prov: Jayden Núñez MD 03/17/18 Albuterol Sulfate* (ALBUTEROL SULFATE MDI*) 8.5 Gm Hfa.aer.ad 2 PUFF INH Q6H, #1 EA 0 Refills Prov: Jayden Núñez MD 03/17/18 Referrals: NOT CHOSEN [facility]/,REFERRING (PCP) Patient Instructions: Asthma, Adult Jayden Núñez MD March 17, 2018 21:31
--- NOTE | 2018-03-18 10:03 | Diagnostic Imaging Report ---
Indication: Shortness of breath Technique: One view of the chest Comparison: 01/02/2018 Findings: Lungs and pleural spaces are clear. Heart size is normal . No significant change Impression: No acute process
== END 2018-03-17 21:27 | disposition home or self-care (01) ==
LOC: EMR 19:58
DX: J45.41 Moderate persistent asthma with (acute) exacerbation (principal)
CPT/HCPCS: 71045; 94640; 94664; 99284; J7512

== ENCOUNTER 2018-03-23 20:52 | Emergency (ER) | payer MEDICAID ==
[~2018-03-23] VITALS: Ht 154.9 cm; Wt 78.0 kg
[~2018-03-23 20:52] MED LIST changes: +ADVAIR 100-501 EACH INH; +ALBUTEROL2.5 MG/3 M HHN
--- NOTE | 2018-03-23 21:08 | Emergency Room Report ---
History of Present Illness General Chief Complaint: Dyspnea/Respdistress Source: Patient Present Illness HPI 32-year-old female with history of asthma, p/w SOB for 1 days. SOB occurs both at rest and on exertion. + non productive cough. Denies chest pain. Patient has been using albuterol inhaler every 4 hours. Also use her nebulizer at home without relief. Had a course of steroids that she finished last week. Pt states that this episode is similar to other episodes of asthma exacerbation. Denies fever, chills. Denies sick contacts or recent travel. Patient denies history of ICU admissions, intubations, or usage of BIPAP for asthma. Denies history of PE/DVT, no recent surgeries, prolonged immobilization, malignancy, or use of OCPs/HRT. Allergies: Coded Allergies: LORATADINE (Verified Allergy, Unknown, 03/17/18) POLLEN EXTRACTS (Verified Allergy, Unknown, 03/23/18) Patient History Past Medical History: see triage record Past Surgical History: none Pertinent Family History: none Last Menstrual Period: on period Reviewed Nursing Documentation: PMH: Agreed; PSxH: Agreed Nursing Documentation-PMH Hx Asthma: Yes Review of Systems All Other Systems: negative except mentioned in HPI Physical Exam Vital Signs Date Time Temp Pulse Resp B/P (MAP) Pulse Ox O2 Delivery O2 Flow Rate FiO2 03/23/18 20:55 98.2 109 18 148/96 98 Room Air 98.2 Sp02 EP Interpretation: reviewed, normal General Appearance: alert, GCS 15, non-toxic, moderate distress Head: normocephalic, atraumatic Eyes: bilateral eye normal inspection, bilateral eye PERRL, bilateral eye EOMI ENT: normal ENT inspection, normal pharynx, normal voice, moist mucus membranes Neck: normal inspection, full range of motion, supple Respiratory: respiratory distress, accessory muscle use, wheezing, expiration Cardiovascular #1: normal inspection, regular rate, rhythm, no edema, normal capillary refill Cardiovascular #2: 2+ radial (R), 2+ radial (L) Gastrointestinal: normal inspection, non tender, soft, non-distended, no guarding Musculoskeletal: normal inspection, back normal, normal range of motion, non- tender Neurologic: normal inspection, alert, oriented x3, responsive, motor strength/ tone normal, sensory intact, normal gait, speech normal Psychiatric: normal inspection, judgement/insight normal, memory normal Skin: normal inspection, normal color, no rash, warm/dry, well hydrated, normal turgor Medical Decision Making Diagnostic Impression: Primary Impression: Asthma ER Course 32-year-old female with history of asthma p/w SOB DDX: Asthma exacerbation, pneumonia, upper respiratory infection/viral syndrome PE is unlikely given other likely diagnoses which is more likely in this patients given clinical scenario and physical examination. Furthermore, there is no history of DVT/PE. PERC negative. No risk factors such as OCPs, prolonged immobilizations, recent surgeries, hypercoagulability. Plan: Combivent nebulizer treatment x 3, steroids, EKG, CXR If patient's condition minimally improves/worsens will require IV access and blood work. Possible IV medications such as magnesium sulfate, continuous albuterol ER Course: Patient has been treated with combivent x 3, steroids, antibiotics. given 3 more albuterol CXR reveals no acute infiltrate Patient's overall respiratory status has improved in ED. Patient states improvement of symptoms. Patient continues to speak in complete sentences and is not in respiratory distress. Repeat lung auscultation: good air entry with dec wheezing. Repeat VS reveals normal RR and SpO2. I offered admission tot he patient as she was here last week for the same thing , but states she feels well enough to go home and use her nebulzier Disposition: Patient will be discharged to home with course of steroids. Patient is instructed to use albuterol nebulizer every 2 hours Strict precautions are discussed with patient on when to emergently return to the ED including: persistent or worsening SOB, chest pain, fever, chills, which could indicate severe illness. Patient verbalized understanding. Patient is to follow up with her/his PMD within 5 days. Patient agrees with plan. Please note that this Emergency Department Report was dictated using [employer] inspector technology software, occasionally this can lead to erroneous entry secondary to interpretation by the dictation equipment. EKG Diagnostic Results EP Interpretation: Yes Rate: normal Rhythm: NSR ST Segments: No acute changes ASA given to patient: No Rhythm Strip EP Interpretation: Yes Rate: 70 Rhythm: NSR, no PVCs, no ectopy Chest X-ray CXR: Ordered: Yes 1 view Indication: SOB EP interpretation: Yes Interpretation: No consolidation, no effusion, no PTX, no acute cardiopulmonary disease Impression: No acute disease Electronically signed by Greg Grady MD Laboratory Tests Test 03/23/18 21:11 White Blood Count 10.9 K/UL (4.8-10.8) H Red Blood Count 4.37 M/UL (4.20-5.40) Hemoglobin 13.7 G/DL (12.0-16.0) Hematocrit 39.6 % (37.0-47.0) Mean Corpuscular Volume 91 FL (80-99) Mean Corpuscular Hemoglobin 31.3 PG (27.0-31.0) H Mean Corpuscular Hemoglobin Concent 34.5 G/DL (32.0-36.0) Red Cell Distribution Width 16.9 % (11.6-14.8) H Platelet Count 373 K/UL (150-450) Mean Platelet Volume 6.6 FL (6.5-10.1) Neutrophils (%) (Auto) 50.9 % (45.0-75.0) Lymphocytes (%) (Auto) 31.9 % (20.0-45.0) Monocytes (%) (Auto) 5.6 % (1.0-10.0) Eosinophils (%) (Auto) 10.1 % (0.0-3.0) H Basophils (%) (Auto) 1.5 % (0.0-2.0) Sodium Level 143 MMOL/L (136-145) Potassium Level 3.4 MMOL/L (3.5-5.1) L Chloride Level 104 MMOL/L (98-107) Carbon Dioxide Level 30 MMOL/L (21-32) Anion Gap 9 mmol/L (5-15) Blood Urea Nitrogen 16 mg/dL (7-18) Creatinine 0.9 MG/DL (0.55-1.30) Estimate Glomerular Filtration Rate > 60 mL/min (>60) Glucose Level 111 MG/DL (74-106) H Calcium Level 9.2 MG/DL (8.5-10.1) Total Bilirubin 0.4 MG/DL (0.2-1.0) Aspartate Amino Transferase (AST) 24 U/L (15-37) Alanine Aminotransferase (ALT) 53 U/L (12-78) Alkaline Phosphatase 70 U/L (46-116) Total Protein 7.7 G/DL (6.4-8.2) Albumin 4.0 G/DL (3.4-5.0) Globulin 3.7 g/dL Albumin/Globulin Ratio 1.1 (1.0-2.7) Last Vital Signs Date Time Temp Pulse Resp B/P (MAP) Pulse Ox O2 Delivery O2 Flow Rate FiO2 03/23/18 20:55 98.2 109 18 148/96 98 Room Air 98.2 Disposition: HOME, SELF-CARE Condition: Improved Scripts Prednisone* (PREDNISONE*) 20 Mg Tablet 40 MG ORAL DAILY for 5 Days, #10 TAB Prov: Greg Grady M.D. 03/23/18 Greg Grady M.D. March 23, 2018 21:08
[2018-03-23] MEDS ORDERED: Solu-MEDROL 125mg Inj IVP ONE (21:15)
[2018-03-23] MEDS ORDERED: Ipratropium 0.02% Inh Soln 2.5ml UD HHN ONE (21:15)
[2018-03-23 21:22] VITALS: BP 130/89
[2018-03-23] MEDS: Albuterol ud Inhalation HHN SCH ×6 (21:22→22:34)
[2018-03-23 21:29] LABS: BASOPHILS % (AUTO) 1.5 % (0.0-2.0); EOSINOPHILS % (AUTO) 10.1 % (0.0-3.0); HEMATOCRIT 39.6 % (37.0-47.0); HEMOGLOBIN 13.7 G/DL (12.0-16.0); LYMPHOCYTES % (AUTO) 31.9 % (20.0-45.0); MEAN CORPUSCULAR VOLUME 91 FL (80-99); MONOCYTES % (AUTO) 5.6 % (1.0-10.0); NEUTROPHILS % (AUTO) 50.9 % (45.0-75.0); PLATELET COUNT 373 K/UL (150-450); RED BLOOD COUNT 4.37 M/UL (4.20-5.40); RED CELL DISTRIBUTION WIDTH 16.9 % (11.6-14.8); WHITE BLOOD COUNT 10.9 K/UL (4.8-10.8)
[2018-03-23 21:40] LABS: ANION GAP 9 mmol/L (5-15); BLOOD UREA NITROGEN 16 mg/dL (7-18); CALCIUM 9.2 MG/DL (8.5-10.1); CARBON DIOXIDE 30 MMOL/L (21-32); CHLORIDE 104 MMOL/L (98-107); CREATININE 0.9 MG/DL (0.55-1.30); POTASSIUM 3.4 MMOL/L (3.5-5.1); SODIUM 143 MMOL/L (136-145)
[2018-03-23 21:45] LABS: ALANINE AMINOTRANSFERASE 53 U/L (12-78); ALBUMIN/GLOBULIN RATIO 1.1 (1.0-2.7); ALKALINE PHOSPHATASE 70 U/L (46-116); ASPARTATE AMINO TRANSFERASE 24 U/L (15-37); BILIRUBIN,TOTAL 0.4 MG/DL (0.2-1.0)
[2018-03-23] MEDS ORDERED: PREDNISONE20 MG ORAL (22:15)
[2018-03-23 23:02] VITALS: BP 121/67
--- NOTE | 2018-03-24 10:43 | Diagnostic Imaging Report ---
Indication: Dyspnea Comparison: 03/17/2018 A single view chest radiograph was obtained. Findings: Cardiomediastinal appearance is within normal limits for age. Pulmonary vascularity is appropriate. The diaphragmatic contour is smooth and costophrenic angles are sharp. No pleural effusions are identified. The bones are unremarkable. Impression: No acute findings
== END 2018-03-23 23:12 | disposition home or self-care (01) ==
LOC: EMR 21:00
DX: J45.909 Unspecified asthma, uncomplicated (principal); Z88.8 Allergy status to other drugs, medicaments and biological substances
CPT/HCPCS: 36415; 71045; 80053; 85025; 93005; 94640; 94664; 96374; 96375; 99283; J2930

== ENCOUNTER 2018-04-13 10:10 | Emergency (ER) | payer MEDICAID ==
[~2018-04-13] VITALS: Ht 157.5 cm; Wt 77.1 kg
[2018-04-13 10:22] VITALS: BP 144/81
[2018-04-13] MEDS ORDERED: Albuterol ud Inhalation HHN ONE (10:30)
--- NOTE | 2018-04-13 10:33 | Emergency Room Report ---
History of Present Illness General Chief Complaint: Asthma Source: Patient Present Illness HPI This patient states she has a history of asthma. She states that over the past 2 days she has had progressively worsening shortness of breath. She does have a nebulizer machine at home that she used albuterol without relief. She states that she has had an ongoing respiratory illness for the past couple weeks. She states that her sputum is thicker and green in color. She denies fever or chills. She denies nausea or vomiting. She denies chest pain. She has no other complaints. Allergies: Coded Allergies: LORATADINE (Verified Allergy, Unknown, 03/17/18) POLLEN EXTRACTS (Verified Allergy, Unknown, 03/23/18) Patient History Past Medical History: see triage record, asthma Social History: Denies: smoking, alcohol use, drug use Last Menstrual Period: Current Reviewed Nursing Documentation: PMH: Agreed; PSxH: Agreed Nursing Documentation-PMH Hx Asthma: Yes Review of Systems All Other Systems: negative except mentioned in HPI Physical Exam Vital Signs Date Time Temp Pulse Resp B/P (MAP) Pulse Ox O2 Delivery O2 Flow Rate FiO2 04/13/18 10:13 98.4 112 27 114/61 93 Room Air 98.4 Sp02 EP Interpretation: reviewed, normal General Appearance: no apparent distress, alert, GCS 15, non-toxic Head: normocephalic, atraumatic Eyes: bilateral eye normal inspection, bilateral eye PERRL ENT: hearing grossly normal, normal pharynx, no angioedema, normal voice Neck: full range of motion, supple/symm/no masses Respiratory: chest non-tender, no respiratory distress, no retraction, no accessory muscle use, speaking full sentences, wheezing, expiration Cardiovascular #1: no edema, tachycardia Gastrointestinal: normal bowel sounds, non tender, soft, non-distended, no guarding, no rebound Rectal: deferred Musculoskeletal: back normal, gait/station normal, normal range of motion, non- tender Neurologic: alert, oriented x3, responsive, motor strength/tone normal, sensory intact, speech normal Psychiatric: judgement/insight normal, memory normal, mood/affect normal, no suicidal/homicidal ideation Skin: normal color, no rash, warm/dry, well hydrated Medical Decision Making Diagnostic Impression: Primary Impression: Asthma attack ER Course This patient has a clinical presentation consistent with asthma exacerbation. Patient has a history of asthma and has wheezing on physical exam. The patient was given albuterol and nebulizer treatments. The patient was also given prednisone orally. The patient had significant improvement in subjective shortness of breath. The patient's lung exam improved significantly. I will also treat the patient with a course of antibiotics as this has been shown to improve the course of an asthma exacerbation. The patient was given close return precautions and followup instructions. Chest X-Ray Diagnostic Results Chest X-Ray Diagnostic Results : Chest X-Ray Ordered: Yes # of Views/Limited/Complete: 1 View Indication: Shortness of Breath EP Interpretation: Yes Interpretation: no effusion, no pneumothorax, no acute cardiopulmonary disease, other - small area in the RLL that could be opacity vs atelectasis Impression: No acute disease Electronically Signed by: Lizz Last Vital Signs Date Time Temp Pulse Resp B/P (MAP) Pulse Ox O2 Delivery O2 Flow Rate FiO2 04/13/18 10:13 98.4 112 27 114/61 93 Room Air 98.4 Status: improved Disposition: HOME, SELF-CARE Condition: Improved Referrals: NOT CHOSEN [facility]/,REFERRING (PCP) Patient Instructions: Asthma, Adult Flornece Hairston DO Apr 13, 2018 10:33
[2018-04-13] MEDS ORDERED: ZITHROMAX250 MG ORAL (11:30)
[2018-04-13] MEDS ORDERED: PREDNISONE20 MG ORAL (11:30)
[2018-04-13 11:45] VITALS: BP 144/81
[2018-04-13] MEDS ORDERED: ALBUTEROL2.5 MG/3 M HHN (11:45)
[2018-04-13] MEDS ORDERED: ALBUTEROL SULF8.5 GM INH (11:45)
--- NOTE | 2018-04-13 11:46 | Diagnostic Imaging Report ---
Indication: Shortness of breath Technique: One view of the chest Comparison: 03/23/2018 Findings: Lungs and pleural spaces are clear. Heart size is normal. No significant interim change Impression: No acute process
== END 2018-04-13 11:45 | disposition home or self-care (01) ==
LOC: EMR 10:23
DX: J45.901 Unspecified asthma with (acute) exacerbation (principal); Z88.8 Allergy status to other drugs, medicaments and biological substances; Z91.048 Other nonmedicinal substance allergy status
CPT/HCPCS: 71045; 94640; 94664; 99283; J7512

== ENCOUNTER 2018-05-02 09:41 | Emergency (ER) | payer MEDICAID ==
[~2018-05-02] VITALS: Ht 157.5 cm; Wt 77.1 kg
[~2018-05-02 09:41] MED LIST changes: +ZITHROMAX250 MG ORAL
[2018-05-02 09:54] VITALS: BP 137/109
[2018-05-02] MEDS: Ipratropium 0.02% Inh Soln 2.5ml UD HHN SCH ×3 (09:57→10:28)
[2018-05-02] MEDS: Albuterol ud Inhalation HHN SCH ×3 (09:57→10:28)
--- NOTE | 2018-05-02 10:46 | Emergency Room Report ---
History of Present Illness General Chief Complaint: Dyspnea/Respdistress Source: Patient Present Illness HPI 32-year-old female presents ED complaining of shortness of breath and wheezing. History of asthma. States symptoms got worse this morning. Does not have her inhaler at this time. Denies fevers or chills. Denies cough. Denies chest pain. Denies sick contacts or recent travel. No other aggravating relieving factors. Denies any other associated symptoms Allergies: Coded Allergies: LORATADINE (Verified Allergy, Unknown, 03/17/18) POLLEN EXTRACTS (Verified Allergy, Unknown, 03/23/18) Patient History Past Medical History: none Past Surgical History: none Pertinent Family History: none Social History: Denies: smoking, alcohol use, drug use Last Menstrual Period: 04/25/18 Now: No Immunizations: UTD Reviewed Nursing Documentation: PMH: Agreed; PSxH: Agreed Nursing Documentation-PMH Hx Asthma: Yes Review of Systems All Other Systems: negative except mentioned in HPI Physical Exam Vital Signs Date Time Temp Pulse Resp B/P (MAP) Pulse Ox O2 Delivery O2 Flow Rate FiO2 05/02/18 09:48 98.1 92 29 138/87 93 Room Air 98.1 05/02/18 09:57 21 Sp02 EP Interpretation: reviewed, normal General Appearance: no apparent distress, alert, GCS 15, non-toxic Head: normocephalic, atraumatic Eyes: bilateral eye normal inspection, bilateral eye PERRL ENT: hearing grossly normal, normal pharynx, no angioedema, normal voice Neck: full range of motion, supple/symm/no masses Respiratory: chest non-tender, normal breath sounds, decreased breath sounds, speaking full sentences, wheezing Cardiovascular #1: regular rate, rhythm, no edema Cardiovascular #2: 2+ carotid (R), 2+ carotid (L), 2+ radial (R), 2+ radial (L) , 2+ dorsalis pedis (R), 2+ dorsalis pedis (L) Gastrointestinal: normal bowel sounds, non tender, soft, non-distended, no guarding, no rebound Rectal: deferred Genitourinary: normal inspection, no CVA tenderness Musculoskeletal: back normal, gait/station normal, normal range of motion, non- tender Neurologic: alert, oriented x3, responsive, motor strength/tone normal, sensory intact, speech normal Psychiatric: judgement/insight normal, memory normal, mood/affect normal, no suicidal/homicidal ideation Reflexes: 3+ bicep (R), 3+ bicep (L), 3+ tricep (R), 3+ tricep (L), 3+ knee (R) , 3+ knee (L) Skin: normal color, no rash, warm/dry, well hydrated Lymphatic: no adenopathy Medical Decision Making Diagnostic Impression: Primary Impression: Asthma attack Qualified Codes: J45.901 - Unspecified asthma with (acute) exacerbation ER Course Hospital Course 32-year-old female presents to ED complaining of wheezing Differential diagnoses include: URI, bronchitis, asthma/COPD, pneumonia Clinical course Patient placed on stretcher. After initial history, physical exam reveals a female in no acute distress. Bilateral TM unremarkable. No pharyngeal erythema. No tonsillar exudates. No lymphadenopathy. Mild wheezing noted on exam, no signs of respiratory distress or retractions. Patient given Prednisone and albuterol treatment in ED with symptoms improved. Reassurance given She does not have a PMD. We will provide PMD referrals. Patient is safe for discharge Diagnosis - asthma attack Stable and discharged home with prescriptions for albuterol, prednisone, mucinex. Instructed to followup with PMD. Return to ED if symptoms recur or worsen Last Vital Signs Date Time Temp Pulse Resp B/P (MAP) Pulse Ox O2 Delivery O2 Flow Rate FiO2 05/02/18 10:28 84 31 98 Room Air 21 05/02/18 09:54 97.1 137/109 97.1 Status: improved Disposition: HOME, SELF-CARE Condition: Stable Referrals: NOT CHOSEN [facility]/,REFERRING (PCP) Jayden Núñez MD May 02, 2018 10:46
[2018-05-02] MEDS ORDERED: ALBUTEROL SULF8.5 GM INH (10:48)
[2018-05-02] MEDS ORDERED: PREDNISONE20 MG ORAL (10:48)
[2018-05-02] MEDS ORDERED: MUCINEX DM ER1 EAC1 PO (10:48)
[2018-05-02 11:05] VITALS: BP 108/71
[2018-05-02 11:13] VITALS: BP 108/71
== END 2018-05-02 11:13 | disposition home or self-care (01) ==
LOC: EMR 10:12
DX: J45.901 Unspecified asthma with (acute) exacerbation (principal); Z88.8 Allergy status to other drugs, medicaments and biological substances; Z91.048 Other nonmedicinal substance allergy status
CPT/HCPCS: 94640; 99282; J7512

== ENCOUNTER 2018-07-02 07:56 | Emergency (ER) | payer MEDICAID ==
[~2018-07-02] VITALS: Ht 157.5 cm; Wt 79.4 kg
[~2018-07-02 07:56] MED LIST changes: +MUCINEX DM ER1 EAC1 PO
[2018-07-02] MEDS ORDERED: VENTOLIN HFA18 GM INH (08:08)
[2018-07-02 08:13] VITALS: BP 115/63
[2018-07-02] MEDS ORDERED: Albuterol/Ipratropium 3ml neb HHN ONE ×2 (08:15→09:30)
--- NOTE | 2018-07-02 08:15 | Emergency Room Report ---
History of Present Illness General Chief Complaint: Asthma Source: Patient, Medical Record Present Illness HPI Patient is a 32-year-old female who presented after increased difficulty breathing. Patient prior history of asthma. She uses albuterol via nebulizer. She had previously been on Advair but had run out of her medications. The patient was having subjective chills. She reports having increased thick sputum. She denies any vomiting or diarrhea. She denies being .Patient states that she had intermittently been using steroids. She was last on steroids approximately 3 months ago. Allergies: Coded Allergies: LORATADINE (Verified Allergy, Unknown, 03/17/18) POLLEN EXTRACTS (Verified Allergy, Unknown, 03/23/18) Patient History Past Medical History: asthma Last Menstrual Period: 06/23/18 Reviewed Nursing Documentation: PMH: Agreed; PSxH: Agreed Nursing Documentation-PMH Past Medical History: No History, Except For Hx Asthma: Yes Review of Systems All Other Systems: negative except mentioned in HPI Physical Exam Vital Signs Date Time Temp Pulse Resp B/P (MAP) Pulse Ox O2 Delivery O2 Flow Rate FiO2 07/02/18 08:05 98.2 104 18 115/63 90 Room Air 98.2 Sp02 EP Interpretation: reviewed, normal General Appearance: normal inspection, well appearing, no apparent distress, alert, GCS 15 Head: atraumatic ENT: normal ENT inspection, hearing grossly normal, normal voice Neck: normal inspection, full range of motion, supple, no bony tend Respiratory: normal inspection, normal breath sounds, no respiratory distress, no retraction, wheezing, expiration Cardiovascular #1: regular rate, rhythm, no edema Gastrointestinal: normal inspection, normal bowel sounds, non tender, soft, no guarding, no hernia Genitourinary: no CVA tenderness Musculoskeletal: normal inspection, back normal, normal range of motion Neurologic: normal inspection, alert, oriented x3, responsive, measurement superintendent III-XII nml as tested, speech normal Psychiatric: normal inspection, judgement/insight normal, mood/affect normal Skin: normal inspection, normal color, no rash Medical Decision Making Diagnostic Impression: Primary Impression: Asthma attack ER Course Patient was shortness of breath. Differential included but was not limited to anemia, pneumonia, pneumothorax, myocardial infarction, pericardial effusion, congestive heart failure, acidosisPatient is given nebulized albuterol with improvement. Patient was given steroids. Repeat lung exam showed improved breath sounds. Patient has a benign exam and does not appear to require any further imaging or laboratory testing at this time. The patient was given prescription for albuterol as well as steroids and steroid inhaler. The patient is advised to follow up with primary care doctor in 1-2 days. Patient is advised to return if any worsening condition or if any changes in status that are concerning. This report is dictated with [employer] combine mechanic software which may occasionally lead to discrepancies related to use of this software. Last Vital Signs Date Time Temp Pulse Resp B/P (MAP) Pulse Ox O2 Delivery O2 Flow Rate FiO2 07/02/18 08:05 98.2 104 18 115/63 90 Room Air 98.2 Status: improved Disposition: HOME, SELF-CARE Condition: Stable Scripts Albuterol Sulfate* (ALBUTEROL SULFATE MDI*) 8.5 Gm Hfa.aer.ad 2 PUFF INH Q4H PRN for cough/wheezing, #1 EA 0 Refills Prov: Koko Santos MD 07/02/18 Prednisone* (PREDNISONE*) 20 Mg Tablet 40 MG ORAL DAILY, #10 TAB Prov: Koko Santos MD 07/02/18 Fluticasone/Salmeterol (Advair 250-50 Diskus) 1 Each Blst.w.dev 1 PUFF INH EVERY 12 HOURS, #1 EA Prov: Koko Santos MD 07/02/18 Albuterol Sulfate* (ALBUTEROL SULFATE HHN*) 2.5 Mg/3 Ml Vial.neb 2.5 MG HHN Q4H PRN for Shortness of Breath, #25 VIAL Prov: Koko Santos MD 07/02/18 Koko Santos MD Jul 02, 2018 08:15
[2018-07-02] MEDS ORDERED: PREDNISONE20 MG ORAL ×2 (10:09→10:35)
[2018-07-02] MEDS ORDERED: ADVAIR 250-501 EACH INH ×2 (10:09→10:35)
[2018-07-02] MEDS ORDERED: ALBUTEROL SULF8.5 GM INH ×2 (10:09→10:35)
[2018-07-02] MEDS ORDERED: ALBUTEROL2.5 MG/3 M HHN ×2 (10:09→10:35)
[2018-07-02 10:12] VITALS: BP_SYST 115; BP_DIAS 60; BP_DIAS 63
== END 2018-07-02 10:12 | disposition home or self-care (01) ==
LOC: EMR 08:10
DX: J45.909 Unspecified asthma, uncomplicated (principal)
CPT/HCPCS: 81025; 94640; 99284; J7512; J7620

== ENCOUNTER 2018-07-18 23:29 | Emergency (ER) | payer MEDICAID ==
[~2018-07-18] VITALS: Ht 157.5 cm; Wt 79.4 kg
[~2018-07-18 23:29] MED LIST changes: +VENTOLIN HFA18 GM INH
[2018-07-18] MEDS ORDERED: Albuterol ud Inhalation HHN ONE (23:45)
[2018-07-18] MEDS ORDERED: Ipratropium 0.02% Inh Soln 2.5ml UD HHN ONE (23:45)
--- NOTE | 2018-07-18 23:48 | Emergency Room Report ---
History of Present Illness General Chief Complaint: Asthma Source: Patient Present Illness HPI Is a 32-year-old female with a history of asthma. She has frequent attacks and has been here multiple numerous times. She presents with chief complaint of asthma exacerbation. She finished cleaning her house today and was sitting down talking or laughing also said she had an attack. Her albuterol was not helping. No fever chills but no nausea no vomiting. Worse with exertion. Worse with lying flat. She is audible wheezing. Similar symptoms in the past. Never been intubated. Denies any drug use. Allergies: Coded Allergies: LORATADINE (Verified Allergy, Unknown, 03/17/18) POLLEN EXTRACTS (Verified Allergy, Unknown, 03/23/18) Patient History Past Medical History: see triage record, old chart reviewed, asthma Past Surgical History: other Pertinent Family History: none Social History: Denies: smoking, alcohol use, drug use Last Menstrual Period: 06/17/18 Now: No : 5 Para: 5 Immunizations: other Reviewed Nursing Documentation: PMH: Agreed; PSxH: Agreed Nursing Documentation-PM Past Medical History: No History, Except For Hx Asthma: Yes Review of Systems Eye: Denies: eye pain, blurred vision ENT: Denies: ear pain, nose congestion, throat swelling Respiratory: Reports: cough, shortness of breath, wheezing Cardiovascular: Denies: chest pain, palpitations Gastrointestinal: Denies: abdominal pain, diarrhea, nausea, vomiting Musculoskeletal: Denies: back pain, joint pain Skin: Denies: rash Neurological: Denies: headache, numbness Endocrine: Denies: increased thirst, increased urine Hematologic/Lymphatic: Denies: easy bruising All Other Systems: negative except mentioned in HPI Physical Exam Vital Signs Date Time Temp Pulse Resp B/P (MAP) Pulse Ox O2 Delivery O2 Flow Rate FiO2 07/18/18 23:31 98.5 86 24 121/76 96 Room Air 98.4 vitals normal Sp02 EP Interpretation: reviewed, normal General Appearance: well appearing, no apparent distress, alert Head: normocephalic, atraumatic Eyes: bilateral eye PERRL, bilateral eye EOMI ENT: hearing grossly normal, normal pharynx Neck: full range of motion, supple, no meningismus Respiratory: chest non-tender, decreased breath sounds, accessory muscle use, wheezing Cardiovascular #1: regular rate, rhythm, no murmur Gastrointestinal: normal bowel sounds, non tender, no mass, no organomegaly, no bruit, non-distended Musculoskeletal: back normal, gait/station normal, normal range of motion Psychiatric: mood/affect normal Skin: warm/dry Medical Decision Making Diagnostic Impression: Primary Impression: Asthma attack Qualified Codes: J45.901 - Unspecified asthma with (acute) exacerbation ER Course This is a 32-year-old female with asthma exacerbation. She's on steroid inhaler already. She's on nebulizer treatment already. CBC show elevation of eosinophil. We'll put her on Singulair also. After several rounds her treatments, she felt better and almost back to baseline. Lungs are clear. We' ll discharge home. Lab Results Impression labs normal Rhythm Strip Diag. Results EP Interpretation: yes Rate: 83 Rhythm: NSR, no PVC's, no ectopy Last Vital Signs Date Time Temp Pulse Resp B/P (MAP) Pulse Ox O2 Delivery O2 Flow Rate FiO2 07/18/18 23:31 98.5 86 24 121/76 96 Room Air 98.4 Status: improved Disposition: HOME, SELF-CARE Condition: Stable Scripts Montelukast Sodium* (SINGULAIR*) 10 Mg Tablet 10 MG ORAL DAILY, #30 TAB Prov: DEAN WHITE M.D. 07/19/18 Prednisone* (PREDNISONE*) 20 Mg Tablet 60 MG ORAL DAILY, #12 TAB Prov: DEAN WHITE M.D. 07/19/18 Albuterol Sulfate* (ALBUTEROL SULFATE MDI*) 8.5 Gm Hfa.aer.ad 2 PUFF INH Q4H PRN for cough/wheezing, #1 EA 0 Refills Prov: DEAN WHITE M.D. 07/19/18 Patient Instructions: Asthma, Adult Additional Instructions: Follow-up your doctor in 7 days. Return if symptom worsen. DEAN WHITE M.D. Jul 18, 2018 23:48
[2018-07-18] MEDS ORDERED: Ipratropium 0.02% Inh Soln 2.5ml UD ONE (23:52)
[2018-07-19] MEDS ORDERED: Albuterol ud Inhalation ONE (00:02)
[2018-07-19] MEDS ORDERED: Solu-MEDROL 125mg Inj IVP ONE (00:45)
[2018-07-19] MEDS ORDERED: Albuterol ud Inhalation HHN ONE (00:45)
[2018-07-19 01:39] LABS: BASOPHILS % (AUTO) 1.7 % (0.0-2.0); EOSINOPHILS % (AUTO) 15.2 % (0.0-3.0); HEMATOCRIT 37.7 % (37.0-47.0); HEMOGLOBIN 12.2 G/DL (12.0-16.0); LYMPHOCYTES % (AUTO) 22.4 % (20.0-45.0); MEAN CORPUSCULAR VOLUME 86 FL (80-99); MONOCYTES % (AUTO) 6.7 % (1.0-10.0); NEUTROPHILS % (AUTO) 54.1 % (45.0-75.0); PLATELET COUNT 467 K/UL (150-450); RED BLOOD COUNT 4.37 M/UL (4.20-5.40); RED CELL DISTRIBUTION WIDTH 14.2 % (11.6-14.8); WHITE BLOOD COUNT 9.5 K/UL (4.8-10.8)
[2018-07-19 01:43] LABS: ANION GAP 9 mmol/L (5-15); BLOOD UREA NITROGEN 8 mg/dL (7-18); CALCIUM 9.1 MG/DL (8.5-10.1); CARBON DIOXIDE 26 MMOL/L (21-32); CHLORIDE 106 MMOL/L (98-107); CREATININE 0.7 MG/DL (0.55-1.30); POTASSIUM 5.1 MMOL/L (3.5-5.1); SODIUM 141 MMOL/L (136-145)
[2018-07-19 01:43] LABS: APPEARANCE,URINE CLEAR; BILIRUBIN, URINE NEGATIVE (NEGATIVE); COLOR,URINE PALE YELLOW; GLUCOSE, URINE (UA) NEGATIVE (NEGATIVE); KETONES,URINE NEGATIVE (NEGATIVE); NITRITE,URINE NEGATIVE (NEGATIVE); PH,URINE 6.5 (4.5-8.0); PROTEIN,URINE NEGATIVE (NEGATIVE); UROBILINOGEN,URINE NORMAL MG/DL (0.0-1.0)
[2018-07-19 01:57] LABS: LEUKOCYTE ESTERASE ,URINE 1+ (NEGATIVE)
[2018-07-19 02:12] VITALS: BP 134/100
[2018-07-19] MEDS ORDERED: ALBUTEROL SULF8.5 GM INH (02:19)
[2018-07-19] MEDS ORDERED: PREDNISONE20 MG ORAL (02:19)
[2018-07-19] MEDS ORDERED: SINGULAIR10 MG ORAL (02:19)
[2018-07-19 02:31] VITALS: BP 134/100
--- NOTE | 2018-07-19 12:10 | Diagnostic Imaging Report ---
Indication: Shortness of breath Technique: One view of the chest Comparison: 04/13/2018 Findings: Lungs and pleural spaces are clear. Heart size is normal. No significant interim change Impression: No acute process
== END 2018-07-19 02:22 | disposition home or self-care (01) ==
LOC: EMR 23:55
DX: J45.901 Unspecified asthma with (acute) exacerbation (principal)
CPT/HCPCS: 36415; 71045; 80048; 80307; 81003; 81025; 85025; 94640; 94664; 96365; 96366; 96375; 99284; J2930; J7512

== ENCOUNTER 2018-08-04 10:24 | Emergency (ER) | payer MEDICAID ==
[~2018-08-04] VITALS: Ht 157.5 cm; Wt 79.4 kg
[~2018-08-04 10:24] MED LIST changes: +SINGULAIR10 MG ORAL
[2018-08-04 10:37] VITALS: BP 126/99
[2018-08-04] MEDS: Albuterol ud Inhalation HHN SCH ×2 (10:48→11:13)
[2018-08-04] MEDS: Ipratropium 0.02% Inh Soln 2.5ml UD HHN SCH ×2 (10:48→11:13)
--- NOTE | 2018-08-04 10:51 | Emergency Room Report ---
History of Present Illness General Chief Complaint: Asthma Source: Patient, Medical Record Present Illness HPI 32-year-old female presents ED complaining of shortness of breath since this morning. History of asthma. States she's been using her inhaler without significant relief. Also notes a cough productive with greenish phlegm. Denies fevers or chills. Denies chest pain. Denies sick contacts or recent travel. Denies smoking. No other aggravating relieving factors. Denies any other associated symptoms Allergies: Coded Allergies: LORATADINE (Verified Allergy, Unknown, 03/17/18) POLLEN EXTRACTS (Verified Allergy, Unknown, 03/23/18) Patient History Past Medical History: asthma Past Surgical History: none Pertinent Family History: none Social History: Denies: smoking, alcohol use, drug use Last Menstrual Period: 08/02/18 Now: No Immunizations: UTD Reviewed Nursing Documentation: PMH: Agreed; PSxH: Agreed Nursing Documentation-PMH Past Medical History: No History, Except For Hx Asthma: Yes Review of Systems All Other Systems: negative except mentioned in HPI Physical Exam Vital Signs Date Time Temp Pulse Resp B/P (MAP) Pulse Ox O2 Delivery O2 Flow Rate FiO2 08/04/18 10:24 98.0 70 18 120/67 95 Room Air 98.1 Sp02 EP Interpretation: reviewed, normal General Appearance: no apparent distress, alert, GCS 15, non-toxic Head: normocephalic Eyes: bilateral eye normal inspection, bilateral eye PERRL ENT: normal ENT inspection Neck: normal inspection Respiratory: decreased breath sounds, wheezing Cardiovascular #1: regular rate, rhythm, no edema Gastrointestinal: normal inspection Rectal: deferred Genitourinary: no CVA tenderness Musculoskeletal: normal inspection Neurologic: alert, oriented x3, responsive, motor strength/tone normal, sensory intact, speech normal Psychiatric: normal inspection Skin: normal inspection Lymphatic: normal inspection Medical Decision Making Diagnostic Impression: Primary Impression: Asthma attack Qualified Codes: J45.901 - Unspecified asthma with (acute) exacerbation ER Course Hospital Course 32-year-old female presents to ED complaining of cough, wheezing Differential diagnoses include: URI, bronchitis, asthma/COPD, pneumonia Clinical course Patient placed on stretcher. After initial history, physical exam reveals a female in no acute distress. Bilateral TM unremarkable. No pharyngeal erythema. No tonsillar exudates. No lymphadenopathy. Mild wheezing noted on exam, no signs of respiratory distress or retractions. Patient given Prednisone and albuterol treatment in ED with symptoms improved. Reassurance given We'll prescribe prednisone and albuterol. Safe discharge close outpatient follow-up Diagnosis - asthma attack Stable and discharged home with prescriptions for prednisone, albuterol. Instructed to followup with PMD. Return to ED if symptoms recur or worsen Last Vital Signs Date Time Temp Pulse Resp B/P (MAP) Pulse Ox O2 Delivery O2 Flow Rate FiO2 08/04/18 10:37 79 18 126/99 95 Room Air 08/04/18 10:24 98.0 98.1 Status: improved Disposition: HOME, SELF-CARE Condition: Stable Scripts Prednisone* (PREDNISONE*) 20 Mg Tablet 40 MG ORAL DAILY, #10 TAB Prov: Jayden Núñez MD 08/04/18 Albuterol Sulfate* (ALBUTEROL SULFATE MDI*) 8.5 Gm Hfa.aer.ad 2 PUFF INH Q6H, #1 EA 0 Refills Prov: Jayden Núñez MD 08/04/18 Referrals: NOT CHOSEN IPA/,REFERRING (PCP) Jayden Núñez MD Aug 04, 2018 10:51
[2018-08-04] MEDS ORDERED: ALBUTEROL SULF8.5 GM INH (11:41)
[2018-08-04] MEDS ORDERED: PREDNISONE20 MG ORAL (11:41)
[2018-08-04 11:48] VITALS: BP 93/64
[2018-08-04 11:49] VITALS: BP 93/64
== END 2018-08-04 11:49 | disposition home or self-care (01) ==
LOC: EMR 10:37
DX: J45.909 Unspecified asthma, uncomplicated (principal); Z88.8 Allergy status to other drugs, medicaments and biological substances
CPT/HCPCS: 94640; 99284; J7512

== ENCOUNTER 2018-12-16 20:08 | Emergency (ER) | payer MEDICAID ==
[~2018-12-16] VITALS: Ht 157.5 cm; Wt 77.1 kg
[2018-12-16] MEDS ORDERED: Albuterol ud Inhalation HHN ONE (20:30)
[2018-12-16] MEDS ORDERED: Ipratropium 0.02% Inh Soln 2.5ml UD HHN ONE (20:30)
[2018-12-16] MEDS ORDERED: Azithromycin 250mg tab PO ONE (20:30)
--- NOTE | 2018-12-16 20:43 | NUR ---
ED Nurse Note: RECIEVED PT ON SONU FROM HOME AWAKE, ALERT AND ORIENTED X 4, PT HERE WITH C/O COUGH X 1 WEEK WITH ASTHMA, PT STATES SHE RAN OUT OF HER INHALER, PT DENIES FEVERS, VOMITING, DIARRHEA OR ANY OTHER COMPLAINTS OR DISCOMFORTS, PT CURRENTLY RECIEVING BREATHING TREATMENT, WILL RESUME CARE ORDERED, NO MONITORING AVAILABLE IN HALLWAY BED.
[2018-12-16 21:17] LABS: APPEARANCE,URINE CLEAR; BILIRUBIN, URINE NEGATIVE (NEGATIVE); COLOR,URINE PALE YELLOW; GLUCOSE, URINE (UA) NEGATIVE (NEGATIVE); KETONES,URINE NEGATIVE (NEGATIVE); LEUKOCYTE ESTERASE ,URINE NEGATIVE (NEGATIVE); NITRITE,URINE NEGATIVE (NEGATIVE); PH,URINE 6 (4.5-8.0); PROTEIN,URINE NEGATIVE (NEGATIVE); UROBILINOGEN,URINE NORMAL MG/DL (0.0-1.0)
--- NOTE | 2018-12-16 21:17 | Emergency Room Report ---
History of Present Illness General Chief Complaint: Upper Respiratory Illness Source: Patient Present Illness HPI Patient presents with 3 days of worsened asthma. She has wheezing. Somewhat productive cough. No fevers. + sore throat. No vomiting or diarrhea. She is running out of her inhaler as she is using it frequently. Last used 2 hours ago. She denies chest pain. This is not her worst attack. She reports 4/10 chest pain, mainly when coughing and pressure. No joint pain, dysuria, rashes. No edema, calf pain. LNMP 2/ and normal. Allergies: Coded Allergies: LORATADINE (Verified Allergy, Unknown, 03/17/18) POLLEN EXTRACTS (Verified Allergy, Unknown, 03/23/18) Patient History Past Medical History: see triage record Social History: Denies: smoking, alcohol use, drug use Social History Narrative at home Last Menstrual Period: 12/08/2018 Now: No Reviewed Nursing Documentation: PMH: Agreed; PSxH: Agreed Nursing Documentation-PMH Past Medical History: No History, Except For Hx Asthma: Yes Review of Systems All Other Systems: negative except mentioned in HPI Physical Exam Vital Signs Date Time Temp Pulse Resp B/P (MAP) Pulse Ox O2 Delivery O2 Flow Rate FiO2 12/16/18 20:15 98.1 70 16 159/74 96 Room Air 12/16/18 20:33 21 Sp02 EP Interpretation: reviewed, normal General Appearance: well appearing, no apparent distress, GCS 15 Head: normocephalic, atraumatic Eyes: bilateral eye normal inspection, bilateral eye PERRL ENT: normal pharynx, moist mucus membranes Neck: full range of motion, supple Respiratory: no respiratory distress, wheezing, expiration Cardiovascular #2: 2+ radial (R) Gastrointestinal: normal inspection, normal bowel sounds Genitourinary: no CVA tenderness Musculoskeletal: back normal, digits/nails normal, gait/station normal, normal range of motion, no calf tenderness Neurologic: alert, oriented x3, normal gait, grossly normal Psychiatric: mood/affect normal Skin: no rash Medical Decision Making Diagnostic Impression: Primary Impression: Asthmatic bronchitis Qualified Codes: J45.41 - Moderate persistent asthma with (acute) exacerbation ER Course Patient presents with URI with wheezing. DDx: asthmatic bronchitis, viral URI, pneumonia amongst others. Based on physical and history, doubt pneumonia. Treatment here with breathing treatments, azithromycin and prednisone. Improved with treatment. Requested refill of several rx's. Patient stable for outpatient observation and treatment. Last Vital Signs Date Time Temp Pulse Resp B/P (MAP) Pulse Ox O2 Delivery O2 Flow Rate FiO2 12/16/18 21:30 98.4 92 20 144/77 98 Room Air 21 Status: improved Disposition: HOME, SELF-CARE Condition: Improved Scripts Azithromycin* (ZITHROMAX*) 250 Mg Tablet 250 MG ORAL DAILY, #4 TAB Prov: Karson Prajapati MD 12/17/18 Dextromethorphan Hb/Doxylamine (ROBITUSSIN NIGHTTIME COUGH DM) 237 Ml Liquid 5 ML PO Q6HR, #60 ML Prov: Karson Prajapati MD 12/16/18 Fluticasone/Salmeterol (Advair 250-50 Diskus) 1 Each Blst.w.dev 1 PUFF INH EVERY 12 HOURS, #1 EA Prov: Karson Prajapati MD 12/16/18 Prednisone* (PREDNISONE*) 20 Mg Tablet 40 MG ORAL DAILY, #10 TAB Prov: Karson Prajapati MD 12/16/18 Albuterol Sulfate* (PROAIR HFA*) 8.5 Gm Hfa.aer.ad 2 PUFFS INH Q6H, #8.5 GM 0 Refills Prov: Karson Prajapati MD 12/16/18 Karson Prajapati MD Dec 16, 2018 21:17
[2018-12-16 21:20] VITALS: BP 144/77
[2018-12-16] MEDS ORDERED: PREDNISONE20 MG ORAL (21:20)
[2018-12-16] MEDS ORDERED: ADVAIR 250-501 EACH INH (21:20)
[2018-12-16] MEDS ORDERED: PROAIR HFA8.5 GM INH (21:20)
[2018-12-16] MEDS ORDERED: ROBITUSSIN NIG237 ML PO (21:20)
--- NOTE | 2018-12-16 21:25 | NUR ---
ED Nurse Note: PT GIVEN BREATHING TREATMENT, TOLERATED WELL, STATES BREATHING EFFORT IS BETTER, REMAINS WITH DRY COUGH, DENIES CP, STATES FEELS TIGHT FROM COUGH ONLY, PT IS AMBULATORY, NO S/S OF ADVERSE REACTIOON NOTED FROM ANTIBIOTICS GIVEN, PT GIVEN F/U INFO AND AFTER CARE INSTRUCTIONS AND RE-VERBALIZES PROPER MEDICATION ADMINISTRATION, PT LEAVING WITH SPOUSE, ARMBAND REMOVED WITHOUT COMPLICATIONS, NAD NOTED DURING D/C TO HOME.
[2018-12-16 21:30] VITALS: BP 144/77
[2018-12-17] MEDS ORDERED: ZITHROMAX250 MG ORAL (04:22)
== END 2018-12-16 21:30 | disposition home or self-care (01) ==
LOC: EMR 20:21
DX: J45.41 Moderate persistent asthma with (acute) exacerbation (principal); Z88.8 Allergy status to other drugs, medicaments and biological substances
CPT/HCPCS: 81003; 81025; 94640; 94664; 99284; J7512; Q0144

== ENCOUNTER 2019-02-08 21:16 | Emergency (ER) | payer MEDICAID ==
[~2019-02-08] VITALS: Ht 157.5 cm; Wt 81.6 kg
[~2019-02-08 21:16] MED LIST changes: +PROAIR HFA8.5 GM INH; +ROBITUSSIN NIG237 ML PO
[2019-02-08 21:30] VITALS: BP 132/87
--- NOTE | 2019-02-08 21:30 | NUR ---
ED Nurse Note: Pt been coughing and SOB for 4 days, she run out of her inhaler. AO4. NAD. VSS
[2019-02-08 21:40] VITALS: BP 132/87
--- NOTE | 2019-02-08 21:40 | NUR ---
ER DISCHARGE NOTE: Patient is cleared to be discharged per ERMD, pt is aox4, on room air, with stable vital signs. pt was given dc and prescription instructions, pt was able to verbalize understanding, pt id band REMOVED. pt is able to ambulate with steady gait. pt took all belongings.
[2019-02-08] MEDS ORDERED: VENTOLIN HFA18 GM INH (21:41)
[2019-02-08] MEDS ORDERED: PREDNISONE20 MG ORAL (21:41)
--- NOTE | 2019-02-08 22:34 | Emergency Room Report ---
History of Present Illness General Chief Complaint: Asthma Source: Patient Present Illness HPI 33-year-old female presents ED for evaluation. Patient complaining of cough and shortness of breath for the last 4 days. History of asthma. Cough is dry. States she does not have an inhaler at this time. Denies fevers or chills. Denies sick contacts or recent travel. No other aggravating relieving factors. Denies any other associated symptoms Allergies: Coded Allergies: LORATADINE (Verified Allergy, Unknown, 03/17/18) POLLEN EXTRACTS (Verified Allergy, Unknown, 03/23/18) Patient History Past Medical History: asthma Past Surgical History: none Pertinent Family History: none Social History: Denies: smoking, alcohol use, drug use Last Menstrual Period: Jan 17 2019 Now: No Immunizations: UTD Reviewed Nursing Documentation: PMH: Agreed; PSxH: Agreed Nursing Documentation-PMH Hx Asthma: Yes Review of Systems All Other Systems: negative except mentioned in HPI Physical Exam Vital Signs Date Time Temp Pulse Resp B/P (MAP) Pulse Ox O2 Delivery O2 Flow Rate FiO2 02/08/19 21:23 98.6 84 20 132/87 93 Room Air Sp02 EP Interpretation: reviewed, normal General Appearance: no apparent distress, alert, GCS 15, non-toxic Head: normocephalic, atraumatic Eyes: bilateral eye normal inspection, bilateral eye PERRL ENT: hearing grossly normal, normal pharynx, no angioedema, normal voice Neck: full range of motion, supple/symm/no masses Respiratory: chest non-tender, lungs clear, normal breath sounds, speaking full sentences Cardiovascular #1: regular rate, rhythm, no edema Cardiovascular #2: 2+ carotid (R), 2+ carotid (L), 2+ radial (R), 2+ radial (L) , 2+ dorsalis pedis (R), 2+ dorsalis pedis (L) Gastrointestinal: normal bowel sounds, non tender, soft, non-distended, no guarding, no rebound Rectal: deferred Genitourinary: normal inspection, no CVA tenderness Musculoskeletal: back normal, gait/station normal, normal range of motion, non- tender Neurologic: alert, oriented x3, responsive, motor strength/tone normal, sensory intact, speech normal Psychiatric: judgement/insight normal, memory normal, mood/affect normal, no suicidal/homicidal ideation Reflexes: 3+ bicep (R), 3+ bicep (L), 3+ tricep (R), 3+ tricep (L), 3+ knee (R) , 3+ knee (L) Skin: normal color, no rash, warm/dry, well hydrated Lymphatic: no adenopathy Medical Decision Making Diagnostic Impression: Primary Impression: Asthma Qualified Codes: J45.909 - Unspecified asthma, uncomplicated ER Course Hospital Course 33-year-old female presents to ED complaining of cough, wheezing. h/o asthma Differential diagnoses include: URI, pharyngitis, otitis media, asthma Clinical course Patient placed on stretcher. After initial history, physical exam reveals a female in no acute distress. Bilateral TM unremarkable. No pharyngeal erythema. No tonsillar exudates. No lymphadenopathy. lungs clear. abdomen soft. Discussed findings with patient. Does not require breathing treatment here. We 'll discharge with inhaler and prednisone. Safe for discharge or close outpatient follow-up. Does not have a PMD. We'll provide referrals Diagnosis - asthma Stable and discharged home with Rx albuterol, prednisone. Instructed to followup with PMD. Return to ED if symptoms recur or worsen Last Vital Signs Date Time Temp Pulse Resp B/P (MAP) Pulse Ox O2 Delivery O2 Flow Rate FiO2 02/08/19 21:23 98.6 84 20 132/87 93 Room Air Status: improved Disposition: HOME, SELF-CARE Condition: Stable Scripts Prednisone* (PREDNISONE*) 20 Mg Tablet 40 MG ORAL DAILY, #10 TAB Prov: Jayden Núñez MD 02/08/19 Albuterol Sulfate (VENTOLIN HFA) 18 Gm Hfa.aer.ad 1 PUFF INH EVERY 6 HOURS, #18 GM 0 Refills Prov: Jayden Núñez MD 02/08/19 Referrals: [facility] Patient Instructions: Asthma, Adult Jayden Núñez MD Feb 08, 2019 22:34
== END 2019-02-08 22:00 | disposition home or self-care (01) ==
LOC: EMR 22:00
DX: J45.909 Unspecified asthma, uncomplicated (principal); Z88.8 Allergy status to other drugs, medicaments and biological substances
CPT/HCPCS: 99282

== ENCOUNTER 2019-03-11 12:41 | Emergency (ER) | payer MEDICAID ==
[~2019-03-11] VITALS: Ht 154.9 cm; Wt 81.6 kg
[2019-03-11 13:05] VITALS: BP 113/69
--- NOTE | 2019-03-11 13:05 | NUR ---
ED Nurse Note: walked in to ED due to headache and coughing for 5 days. pt noted to have wheezing on bilateral lungs, olga chong made aware and order breathing tx and po emds and carried out. pt stated she has hx of asthma and was taking inhaler. will continue to monitor.
[2019-03-11] MEDS ORDERED: Albuterol/Ipratropium 3ml neb HHN SCH (13:15)
--- NOTE | 2019-03-11 13:46 | Emergency Room Report ---
History of Present Illness General Chief Complaint: Upper Respiratory Illness Source: Medical Record Present Illness HPI 33 YO Female Pt. presents to the ED c/o 03/03 in severity productive cough , wheezing, chest congestion, fevers and chills and progressive MANDEL x 1 week with no response to at home nebulized treatments. Pt. with hx. of moderate asthma which requires MDI and HHN treatments at home. Denies smoking hx. Pt. denies recent travel or ill contacts. Denies sore throat, ear pain, high fevers, lethargy, neck pain/stiffness, irritability, photophobia dehydration, N/V/D. Denies Cp, Palpitations, LOC, AMS, seizures, paresthesias, or changes in Hearing or vision, no Sudden severe MANDEL. Allergies: Coded Allergies: LORATADINE (Verified Allergy, Unknown, 03/17/18) POLLEN EXTRACTS (Verified Allergy, Unknown, 03/23/18) Patient History Past Medical History: see triage record, asthma Past Surgical History: none Last Menstrual Period: 02/20/19 Now: No Reviewed Nursing Documentation: PMH: Agreed; PSxH: Agreed Nursing Documentation-PMH Past Medical History: No History, Except For Hx Asthma: Yes Review of Systems All Other Systems: negative except mentioned in HPI Physical Exam Vital Signs Date Time Temp Pulse Resp B/P (MAP) Pulse Ox O2 Delivery O2 Flow Rate FiO2 03/11/19 12:50 97.3 94 16 94 Room Air 03/11/19 13:05 113/69 Sp02 EP Interpretation: reviewed, normal General Appearance: no apparent distress, alert, GCS 15, non-toxic Head: normocephalic, atraumatic Eyes: bilateral eye normal inspection, bilateral eye PERRL, bilateral eye other - no photophobia ENT: hearing grossly normal, normal voice Neck: full range of motion, no meningismus Respiratory: lungs clear, no respiratory distress, no accessory muscle use, speaking full sentences, wheezing Cardiovascular #1: regular rate, rhythm, no edema, normal capillary refill Musculoskeletal: back normal, gait/station normal, normal range of motion, non- tender Neurologic: alert, oriented x3, responsive, motor strength/tone normal, sensory intact, speech normal, grossly normal Psychiatric: judgement/insight normal Skin: normal color, no rash, warm/dry, well hydrated Medical Decision Making PA Attestation Dr. Prajapati is my supervising Physician whom patient management has been discussed with. Diagnostic Impression: Primary Impression: Atypical pneumonia ER Course 33 YO Female Pt. presents to the ED c/o 03/03 in severity productive cough , wheezing, chest congestion, fevers and chills and progressive MANDEL x 1 week with no response to at home nebulized treatments. Pt. with hx. of moderate asthma which requires MDI and HHN treatments at home. Denies smoking hx. Pt. denies recent travel or ill contacts. Denies sore throat, ear pain, high fevers, lethargy, neck pain/stiffness, irritability, photophobia dehydration, N/V/D. Denies Cp, Palpitations, LOC, AMS, seizures, paresthesias, or changes in Hearing or vision, no Sudden severe MANDEL. Ddx considered but are not limited to URI, pneumonia, PE, strep pharyngitis, meningitis. Vital signs: Pt.is afebrile VS are WNL H&PE are most consistent with prolonged asthma exacerbation with clinical symptoms of fevers and chills suspicious for atypical pneumonia to warrant abx usage. ORDERS: none required at this time, the diagnosis is clinical ED INTERVENTIONS: -Duo Nebs x 3 -Prednisone 60mg PO - Lung sounds have improved bilaterally upon reassessment after above interventions. -I do not identify an emergent condition at this time. With current presentation, pt. is stable for close outpatient follow up and conservative treatment. D/w pt. to return promptly to ED with worsening or new symptoms.- Pt. verbalizes' understanding and agreement with proposed treatment plan.proposed treatment plan. DISCHARGE: At this time pt. is stable for d/c to home. Will provide printed patient care instructions, and any necessary prescriptions. Care plan and follow up instructions have been discussed with the patient prior to discharge. Last Vital Signs Date Time Temp Pulse Resp B/P (MAP) Pulse Ox O2 Delivery O2 Flow Rate FiO2 03/11/19 13:05 97.3 94 16 113/69 94 Room Air Status: improved Disposition: HOME, SELF-CARE Condition: Stable Scripts Prednisone* (PREDNISONE*) 20 Mg Tablet 40 MG ORAL DAILY for 5 Days, #10 TAB Prov: Adriana Grigsby 03/11/19 Albuterol Sulfate* (ALBUTEROL SULFATE MDI*) 8.5 Gm Hfa.aer.ad 2 PUFF INH Q4H, #1 INH 0 Refills Prov: Adriana Grigsby 03/11/19 Albuterol Sulfate* (ALBUTEROL SULFATE HHN*) 2.5 Mg/3 Ml Vial.neb 3 ML INH Q4H PRN for Shortness of Breath, #30 EA Prov: Adriana Grigsby 03/11/19 Codeine/Promethazine Hcl* (PROMETHAZINE-CODEINE SYRUP*) 118 Ml Syrup 5 ML ORAL Q6H PRN for For Cough, #120 ML 0 Refills Prov: Adriana Grigsby 03/11/19 Azithromycin* (ZITHROMAX*) 250 Mg Tablet 250 MG ORAL DAILY, #6 TAB 0 Refills Take two tables once daily for 1 day, then one tablet once daily for 4 days. Prov: Adriana Grigsby 03/11/19 Referrals: NOT CHOSEN IPA/MD,REFERRING (PCP) Patient Instructions: Acute Bronchitis, [id number] Additional Instructions: Take medications as directed. Follow up with a Primary Care Provider in 3-5 days, even if your symptoms have resolved. --Please review list of primary care clinics, if you do not already have a primary care provider Return sooner to ED if new symptoms occur, or current symptoms become worse. Do not drink alcohol, drive, or operate heavy machinery while taking Cough Syrup as this may cause drowsiness. - Please note that this Emergency Department Report was dictated using [employer] roaster technology software, occasionally this can lead to erroneous entry secondary to interpretation by the dictation equipment. Adriana Grigsby March 11, 2019 13:46
[2019-03-11] MEDS ORDERED: PREDNISONE20 MG ORAL (13:48)
[2019-03-11] MEDS ORDERED: PROMETHAZINE-C118 M1 ORAL (13:48)
[2019-03-11] MEDS ORDERED: ALBUTEROL2.5 MG/3 M INH (13:48)
[2019-03-11] MEDS ORDERED: ZITHROMAX250 MG ORAL (13:48)
[2019-03-11] MEDS ORDERED: ALBUTEROL SULF8.5 GM INH (13:48)
--- NOTE | 2019-03-11 13:56 | NUR ---
ED Nurse Note: respiratory therapist on bedsidegiving nebulization to the pt
[2019-03-11 14:51] VITALS: BP 113/69
--- NOTE | 2019-03-11 14:51 | NUR ---
ER DISCHARGE NOTE: Patient is cleared to be discharged per ERMD, pt is aox4, on room air, with stable vital signs. pt was given dc and prescription instructions, pt was able to verbalize understanding, pt id band removed without complications. pt is able to ambulate with steady gait. pt took all belongings.
== END 2019-03-11 14:51 | disposition home or self-care (01) ==
LOC: EMR 13:00
DX: J18.9 Pneumonia, unspecified organism (principal); Z88.8 Allergy status to other drugs, medicaments and biological substances
CPT/HCPCS: 94640; 94664; 99283; J7512; J7620

== ENCOUNTER 2019-03-24 08:23 | Emergency (ER) | payer MEDICAID ==
[~2019-03-24] VITALS: Ht 157.5 cm; Wt 81.6 kg
[~2019-03-24 08:23] MED LIST changes: +ALBUTEROL2.5 MG/3 M INH
--- NOTE | 2019-03-24 08:36 | NUR ---
ED Nurse Note: pt walked in due to cough and congetion that has been going on for 3 week, pt was seen in the ed 2 weeks ago and was prescribed abx, pt stated that she took albuterol at home this morning and was feeeling better. pt noted to have wheezing on bilateral lung, on all lobes expiratory. pt stated she has 4/10 pain when inspiration. will continue to monitor
[2019-03-24 08:40] VITALS: BP 122/84
--- NOTE | 2019-03-24 09:26 | NUR ---
ED Nurse Note: respiratory therapist on bedside giving nebulization to pt. pt medicate and tolerated well
[2019-03-24] MEDS: Albuterol ud Inhalation HHN SCH ×3 (09:28→10:00)
[2019-03-24] MEDS: Ipratropium 0.02% Inh Soln 2.5ml UD HHN SCH ×3 (09:28→10:00)
--- NOTE | 2019-03-24 09:36 | NUR ---
ED Nurse Note: traffic signal technician on bedside
[2019-03-24] MEDS ORDERED: PROMETHAZINE-C118 M1 ORAL (10:17)
[2019-03-24] MEDS ORDERED: PREDNISONE20 MG ORAL (10:17)
[2019-03-24] MEDS ORDERED: VENTOLIN HFA18 GM INH (10:17)
[2019-03-24 10:28] VITALS: BP 122/84
--- NOTE | 2019-03-24 10:28 | Diagnostic Imaging Report ---
Indication: Cough Comparison: 07/19/2018 A single view chest radiograph was obtained. Findings: Cardiomediastinal appearance is within normal limits for age. The lungs are clear. Pulmonary vascularity is appropriate. The diaphragmatic contour is smooth and costophrenic angles are sharp. No pleural effusions are identified. The bones are unremarkable. Impression: No acute findings
--- NOTE | 2019-03-24 11:51 | NUR ---
RESPIRATORY NOTE: Gave 2 of 3 ordered 5mg Alb + Atro. RN notified
--- NOTE | 2019-03-24 14:01 | Emergency Room Report ---
History of Present Illness General Chief Complaint: Upper Respiratory Illness Source: Patient Present Illness HPI 33-year-old female presents ED for evaluation. Patient complaining of cough and congestion and wheezing. History of asthma. Cough is productive with yellowish phlegm. Denies fevers or chills. States that she was seen here a few weeks ago for similar presentation. Was put on antibiotics states symptoms did not resolve. Denies sick contacts or recent travel. No other aggravating relieving factors. Denies any other associated symptoms Allergies: Coded Allergies: LORATADINE (Verified Allergy, Unknown, 03/24/19) POLLEN EXTRACTS (Verified Allergy, Unknown, 03/24/19) Patient History Social History: Denies: smoking, alcohol use, drug use Last Menstrual Period: 03/17/19 Now: No Immunizations: UTD Reviewed Nursing Documentation: PMH: Agreed; PSxH: Agreed Nursing Documentation-PMH Past Medical History: No History, Except For Hx Asthma: Yes Review of Systems All Other Systems: negative except mentioned in HPI Physical Exam Vital Signs Date Time Temp Pulse Resp B/P (MAP) Pulse Ox O2 Delivery O2 Flow Rate FiO2 03/24/19 08:26 98.2 92 18 122/84 (97) 94 Room Air 03/24/19 09:26 21 Sp02 EP Interpretation: reviewed, normal General Appearance: no apparent distress, alert, GCS 15, non-toxic Head: normocephalic, atraumatic Eyes: bilateral eye normal inspection, bilateral eye PERRL ENT: hearing grossly normal, normal pharynx, no angioedema, normal voice Neck: full range of motion, supple/symm/no masses Respiratory: chest non-tender, speaking full sentences, wheezing Cardiovascular #1: regular rate, rhythm, no edema Cardiovascular #2: 2+ carotid (R), 2+ carotid (L), 2+ radial (R), 2+ radial (L) , 2+ dorsalis pedis (R), 2+ dorsalis pedis (L) Gastrointestinal: normal bowel sounds, non tender, soft, non-distended, no guarding, no rebound Rectal: deferred Genitourinary: normal inspection, no CVA tenderness Musculoskeletal: back normal, gait/station normal, normal range of motion, non- tender Neurologic: alert, oriented x3, responsive, motor strength/tone normal, sensory intact, speech normal Psychiatric: judgement/insight normal, memory normal, mood/affect normal, no suicidal/homicidal ideation Reflexes: 3+ bicep (R), 3+ bicep (L), 3+ tricep (R), 3+ tricep (L), 3+ knee (R) , 3+ knee (L) Skin: normal color, no rash, warm/dry, well hydrated Lymphatic: no adenopathy Medical Decision Making Diagnostic Impression: Primary Impression: Asthmatic bronchitis Qualified Codes: J45.901 - Unspecified asthma with (acute) exacerbation ER Course Hospital Course 33-year-old female presents to ED complaining of cough, wheezing. Differential diagnoses include: URI, bronchitis, asthma/COPD, pneumonia Clinical course Patient placed on stretcher. After initial history and physical I ordered CXr, prednisone and nebulizer treatment. Chest x-ray shows no focal consolidation or other acute process Upon reassessment patient states cough and symptoms have improved. Findings consistent with bronchitis. I see no reason to start patient on antibiotics again. Patient agrees with plan. Safe for discharge with close outpatient follow-up. States she has a PMD Diagnosis - asthmatic bronchitis Stable and discharged home with prescriptions for Rx albuterol, prednisone, promethazine. Instructed to followup with PMD. Return to ED if symptoms recur or worsen Chest X-Ray Diagnostic Results Chest X-Ray Diagnostic Results : Chest X-Ray Ordered: Yes # of Views/Limited/Complete: 1 View Indication: Shortness of Breath EP Interpretation: Yes Interpretation: no consolidation, no effusion, no pneumothorax, no acute cardiopulmonary disease Impression: No acute disease Electronically Signed by: Electronically signed by Jayden Núñez MD Last Vital Signs Date Time Temp Pulse Resp B/P (MAP) Pulse Ox O2 Delivery O2 Flow Rate FiO2 03/24/19 10:28 98.2 92 20 122/84 98 Room Air 21 Status: improved Disposition: HOME, SELF-CARE Condition: Stable Scripts Codeine/Promethazine Hcl* (PROMETHAZINE-CODEINE SYRUP*) 118 Ml Syrup 5 ML ORAL Q6H PRN for For Cough, #120 ML 0 Refills Prov: Jayden Núñez MD 03/24/19 Albuterol Sulfate (VENTOLIN HFA) 18 Gm Hfa.aer.ad 1 PUFF INH EVERY 6 HOURS, #18 GM 0 Refills Prov: Jayden Núñez MD 03/24/19 Prednisone* (PREDNISONE*) 20 Mg Tablet 40 MG ORAL DAILY, #10 TAB Prov: Jayden Núñez MD 03/24/19 Referrals: NOT CHOSEN IPA/,REFERRING (PCP) Patient Instructions: Acute Bronchitis, [id number] Jayden Núñez MD March 24, 2019 14:00
== END 2019-03-24 10:28 | disposition home or self-care (01) ==
LOC: EMR 10:20
DX: J45.901 Unspecified asthma with (acute) exacerbation (principal); Z88.8 Allergy status to other drugs, medicaments and biological substances; Z91.048 Other nonmedicinal substance allergy status
CPT/HCPCS: 71045; 94640; 94664; 99283; J7512

== ENCOUNTER 2019-08-31 08:32 | Emergency (ER) | payer MEDICAID ==
[~2019-08-31] VITALS: Ht 154.9 cm; Wt 79.4 kg
[2019-08-31 08:45] VITALS: BP 112/57
[2019-08-31] MEDS ORDERED: Solu-MEDROL 125mg Inj IVP ONE (08:45)
[2019-08-31] MEDS ORDERED: Ipratropium 0.02% Inh Soln 2.5ml UD HHN ONE (08:45)
--- NOTE | 2019-08-31 08:45 | NUR ---
ED Nurse Note: Patient arrive to ED by car from home. She states that she has been short of breath and coughing for 5 days. She states that the breathing machine she has at home is not working. Currently, patient stable, no shortness of breath. Expiratory wheezes heard in bilateral lungs. Patient on the supervisor [employer], O2 sat 96%. AxO x 4, bed in lowest position. Blood and urine sent to lab.
--- NOTE | 2019-08-31 08:48 | Emergency Room Report ---
History of Present Illness General Chief Complaint: Upper Respiratory Illness Source: Patient Present Illness HPI Patient presents with cough for 5 days. Today she was coughing up green material and had a scant amount of blood. She has also been vomiting with a cough and had chest pain. She reports the pain in her chest is 5/10 and worse when she is coughing. She has a nebulizer and inhaler at home. She is been using both. The nebulizer she used last night. The patient uses prednisone. She feels that this might help. This is not her worst attack. She has never been intubated. No fevers, chills, sore throat, palpitations, nausea, vomiting, diarrhea, dysuria, abdominal pain, joint pain, rashes, depression, anxiety, visual changes , dizziness, headache. Allergies: Coded Allergies: LORATADINE (Verified Allergy, Unknown, 03/24/19) POLLEN EXTRACTS (Verified Allergy, Unknown, 03/24/19) Patient History Past Medical History: see triage record Social History: Denies: smoking, alcohol use, drug use Social History Narrative Not working outside of home Last Menstrual Period: 08/23/19 Reviewed Nursing Documentation: PMH: Agreed; PSxH: Agreed Nursing Documentation-PMH Past Medical History: No History, Except For Hx Asthma: Yes Review of Systems All Other Systems: negative except mentioned in HPI Physical Exam Vital Signs Date Time Temp Pulse Resp B/P (MAP) Pulse Ox O2 Delivery O2 Flow Rate FiO2 08/31/19 08:34 98.6 92 18 117/79 (92) 94 Room Air Sp02 EP Interpretation: reviewed, abnormal - Interpreted as slightly low by me General Appearance: well appearing, no apparent distress, GCS 15 Head: normocephalic Eyes: bilateral eye normal inspection, bilateral eye PERRL, bilateral eye EOMI ENT: normal pharynx, moist mucus membranes Neck: supple Respiratory: no respiratory distress, wheezing, expiration, inspiration Cardiovascular #1: regular rate, rhythm Cardiovascular #2: 2+ radial (R) Gastrointestinal: normal inspection, normal bowel sounds, non tender, no mass, non-distended Musculoskeletal: back normal, gait/station normal, normal range of motion Neurologic: alert, oriented x3, grossly normal Psychiatric: mood/affect normal Skin: no rash Medical Decision Making Diagnostic Impression: Primary Impression: Asthma attack Qualified Codes: J45.41 - Moderate persistent asthma with (acute) exacerbation Additional Impression: Eosinophilia ER Course Patient presents with wheezing and coughing colored phlegm with a scant amount of blood. Differential includes asthma exacerbation, bronchitis, pneumonia amongst others. Clinically the patient does not have a pulmonary embolus at this time. Evaluation with EKG, chest x-ray labs. Patient will be treated with Solu-Medrol and breathing treatments. The magnesium will be checked. This is not her worst attack. Chest x-ray no infiltrates. CBC remarkable for eosinophilia. CMP unremarkable. Patient improved with breathing treatments. O2 sat improved. Discussed treatment plan with patient. Due to the purulent nature of sputum and bronchospasm, amoxicillin prescribed. Patient stable for outpatient observation and treatment. Laboratory Tests Test 08/31/19 08:56 White Blood Count 9.6 K/UL (4.8-10.8) Red Blood Count 4.24 M/UL (4.20-5.40) Hemoglobin 8.5 G/DL (12.0-16.0) L Hematocrit 29.0 % (37.0-47.0) L Mean Corpuscular Volume 68 FL (80-99) L Mean Corpuscular Hemoglobin 20.1 PG (27.0-31.0) L Mean Corpuscular Hemoglobin Concent 29.4 G/DL (32.0-36.0) L Red Cell Distribution Width 17.3 % (11.6-14.8) H Platelet Count 513 K/UL (150-450) H Mean Platelet Volume 6.4 FL (6.5-10.1) L Neutrophils (%) (Auto) % (45.0-75.0) Lymphocytes (%) (Auto) % (20.0-45.0) Monocytes (%) (Auto) % (1.0-10.0) Eosinophils (%) (Auto) % (0.0-3.0) Basophils (%) (Auto) % (0.0-2.0) Differential Total Cells Counted 100 Neutrophils % (Manual) 62 % (45-75) Lymphocytes % (Manual) 19 % (20-45) L Monocytes % (Manual) 6 % (1-10) Eosinophils % (Manual) 12 % (0-3) H Basophils % (Manual) 1 % (0-2) Band Neutrophils 0 % (0-8) Platelet Estimate Adequate Platelet Morphology Normal Polychromasia 1+ Hypochromasia 2+ Anisocytosis 1+ Microcytosis 4+ Prothrombin Time 10.0 SEC (9.30-11.50) Prothrombin Time INR 0.9 (0.9-1.1) PTT 25 SEC (23-33) Urine Color Yellow Urine Appearance Clear Urine pH 6.5 (4.5-8.0) Urine Specific [place] 1.010 (1.005-1.035) Urine Protein Negative (NEGATIVE) Urine Glucose (UA) Negative (NEGATIVE) Urine Ketones Negative (NEGATIVE) Urine Blood Negative (NEGATIVE) Urine Nitrite Negative (NEGATIVE) Urine Bilirubin Negative (NEGATIVE) Urine Urobilinogen Normal MG/DL (0.0-1.0) Urine Leukocyte Esterase Negative (NEGATIVE) Sodium Level 141 MMOL/L (136-145) Potassium Level 3.8 MMOL/L (3.5-5.1) Chloride Level 105 MMOL/L (98-107) Carbon Dioxide Level 26 MMOL/L (21-32) Anion Gap 10 mmol/L (5-15) Blood Urea Nitrogen 9 mg/dL (7-18) Creatinine 0.6 MG/DL (0.55-1.30) Estimate Glomerular Filtration Rate > 60 mL/min (>60) Glucose Level 96 MG/DL (74-106) Lactic Acid Level 1.50 mmol/L (0.4-2.0) Calcium Level 8.9 MG/DL (8.5-10.1) Magnesium Level 2.1 MG/DL (1.8-2.4) Total Bilirubin 0.8 MG/DL (0.2-1.0) Aspartate Amino Transferase (AST) 23 U/L (15-37) Alanine Aminotransferase (ALT) 51 U/L (12-78) Alkaline Phosphatase 74 U/L (46-116) Total Creatine Kinase 103 U/L (26-308) Pro-B-Type Natriuretic Peptide 14 pg/mL (0-125) Total Protein 7.5 G/DL (6.4-8.2) Albumin 4.1 G/DL (3.4-5.0) Globulin 3.4 g/dL Albumin/Globulin Ratio 1.2 (1.0-2.7) Microbiology Date/Time Source Procedure Growth Status 08/31/19 08:56 Nasal Nares - Final Complete 08/31/19 08:56 Nasal Nares - Final Complete EKG Diagnostic Results Rate: normal Rhythm: NSR ST Segments: no acute changes Rhythm Strip Diag. Results EP Interpretation: yes Rhythm: NSR, no PVC's, no ectopy Chest X-Ray Diagnostic Results Chest X-Ray Diagnostic Results : Chest X-Ray Ordered: Yes # of Views/Limited/Complete: 1 View Indication: Other EP Interpretation: Yes Interpretation: no consolidation, no effusion, no pneumothorax Impression: No acute disease Electronically Signed by: Electronically signed by Karson Prajapati MD Last Vital Signs Date Time Temp Pulse Resp B/P (MAP) Pulse Ox O2 Delivery O2 Flow Rate FiO2 08/31/19 12:25 98.5 88 16 116/66 99 Room Air 08/31/19 09:15 21 Status: improved Disposition: HOME, SELF-CARE Condition: Improved Scripts Beclomethasone Dipropionate 40MCG Oral Inh (QVAR 40*) 7.3 Gm Aer.w.adap 2 PUFFS INH TWICE A DAY, #1 GM 0 Refills Use after you stop prednisone. This may help prevent attacks. Prov: Karson Prajapati MD 08/31/19 Prednisone* (PREDNISONE*) 20 Mg Tablet 40 MG ORAL DAILY, #10 TAB Prov: Karson Prajapati MD 08/31/19 Albuterol Sulfate* (ALBUTEROL SULFATE HHN*) 2.5 Mg/3 Ml Vial.neb 2.5 MG HHN Q4H PRN for Shortness of Breath, #25 VIAL 1 Refill Prov: Karson Prajapati MD 08/31/19 Albuterol Sulfate* (ALBUTEROL SULFATE MDI*) 8.5 Gm Hfa.aer.ad 2 PUFF INH Q6H, #1 EA 0 Refills Prov: Karson Prajapati MD 08/31/19 Amoxicillin* (AMOXIL*) 500 Mg Capsule 500 MG ORAL THREE TIMES A DAY, #21 CAP Prov: Karson Prajapati MD 08/31/19 Referrals: NON PHYSICIAN (PCP) Karson Prajapati MD Aug 31, 2019 08:48
[2019-08-31] MEDS: Albuterol ud Inhalation HHN SCH ×3 (08:53→09:30)
[2019-08-31 09:25] LABS: HEMOGLOBIN 8.5 G/DL (12.0-16.0); MEAN CORPUSCULAR VOLUME 68 FL (80-99); PLATELET COUNT 513 K/UL (150-450); RED BLOOD COUNT 4.24 M/UL (4.20-5.40); RED CELL DISTRIBUTION WIDTH 17.3 % (11.6-14.8); WHITE BLOOD COUNT 9.6 K/UL (4.8-10.8)
[2019-08-31 09:33] LABS: APPEARANCE,URINE CLEAR; BILIRUBIN, URINE NEGATIVE (NEGATIVE); GLUCOSE, URINE (UA) NEGATIVE (NEGATIVE); KETONES,URINE NEGATIVE (NEGATIVE); NITRITE,URINE NEGATIVE (NEGATIVE)
[2019-08-31 09:35] LABS: ANION GAP 10 mmol/L (5-15); BLOOD UREA NITROGEN 9 mg/dL (7-18); CALCIUM 8.9 MG/DL (8.5-10.1); CARBON DIOXIDE 26 MMOL/L (21-32); CHLORIDE 105 MMOL/L (98-107); CREATININE 0.6 MG/DL (0.55-1.30); POTASSIUM 3.8 MMOL/L (3.5-5.1); SODIUM 141 MMOL/L (136-145)
[2019-08-31 09:38] LABS: INR 0.9 (0.9-1.1)
--- NOTE | 2019-08-31 09:38 | NUR ---
ED Nurse Note: Patient resting in bed. Receiving breathing treatment.
[2019-08-31 09:47] LABS: COLOR,URINE YELLOW
[2019-08-31 09:48] LABS: ALANINE AMINOTRANSFERASE 51 U/L (12-78); ALBUMIN 4.1 G/DL (3.4-5.0); ALBUMIN/GLOBULIN RATIO 1.2 (1.0-2.7); ALKALINE PHOSPHATASE 74 U/L (46-116); ASPARTATE AMINO TRANSFERASE 23 U/L (15-37); BILIRUBIN,TOTAL 0.8 MG/DL (0.2-1.0); CREATINE KINASE 103 U/L (26-308); LEUKOCYTE ESTERASE ,URINE NEGATIVE (NEGATIVE); PH,URINE 6.5 (4.5-8.0); PROTEIN,URINE NEGATIVE (NEGATIVE); UROBILINOGEN,URINE NORMAL MG/DL (0.0-1.0)
--- NOTE | 2019-08-31 10:48 | Diagnostic Imaging Report ---
Indication: Dyspnea Technique: One view of the chest Comparison: 03/24/2019 Findings: Lungs and pleural spaces are clear. Heart size is normal. No significant interim change Impression: No acute process
[2019-08-31 11:07] VITALS: BP 115/60
[2019-08-31] MEDS ORDERED: ALBUTEROL2.5 MG/3 M HHN (12:15)
[2019-08-31] MEDS ORDERED: PREDNISONE20 MG ORAL (12:15)
[2019-08-31] MEDS ORDERED: QVAR7.3 GM INH (12:15)
[2019-08-31] MEDS ORDERED: AMOXICILLIN500 MG ORAL (12:15)
[2019-08-31] MEDS ORDERED: ALBUTEROL SULF8.5 GM INH (12:15)
[2019-08-31 12:25] VITALS: BP 116/66
--- NOTE | 2019-08-31 12:25 | NUR ---
ER DISCHARGE NOTE: Patient is cleared to be discharged per ERMD, pt is aox4, on room air, with stable vital signs. pt was given dc and prescription instructions, pt was able to verbalize understanding, pt id band and iv site removed without complications. pt is able to ambulate with steady gait. pt took all belongings.
--- NOTE | 2019-09-02 15:35 | Cardiology Report ---
APPROVED REPORT EKG Measurement Heart [id number] Normal sinus rhythm Normal ECG
== END 2019-08-31 12:25 | disposition home or self-care (01) ==
LOC: EMR 08:42
DX: J45.41 Moderate persistent asthma with (acute) exacerbation (principal); D72.1 Eosinophilia; Z91.09 Other allergy status, other than to drugs and biological substances
CPT/HCPCS: 36415; 71045; 80053; 81003; 82550; 83605; 83735; 83880; 85007; 85025; 85610; 85730; 86710; 93005; 94640; 94664; 96361; 96374; J2930; Z7502; 99284; J7030